=== PATIENT | female | born 1960 | race Caucasian/White ===

== ENCOUNTER → 2018-02-25 09:48 | Outpatient (CLI) | payer MEDICAID, SELFPAY ==
[2018-02-25 14:10] LABS: Basophils # 0.1 K/mm3 (0-0.2); Basophils % 0.6 % (0.1-2.0); Eosinophils # 0.4 K/mm3 (0.0-0.4); Eosinophils % 4.4 % (0.1-12.0); Hematocrit 37.2 % (37.0-47.0); Hemoglobin 11.5 g/dL (12.2-16.2); Lymphocytes % 24.8 K/mm3 (10-50); Mean Corpuscular HGB Conc 30.8 g/dL (31.8-35.4); Mean Corpuscular Hemoglobin 25.1 pg (27.0-31.2); Mean Corpuscular Volume 81.3 fl (81-99); Mean Platelet Volume 7.4 fl (7.4-10.4); Monocytes # 0.4 K/mm3 (0.1-1.0); Monocytes % 4.5 % (1.7-9.3); Neutrophils # 5.4 K/mm3 (1.8-7.8); Neutrophils % 65.6 % (37.0-80.0); Platelet Count 304 K/mm3 (142-424); Red Blood Count 4.58 M/mm3 (4.20-5.40); White Blood Count 8.2 K/mm3 (4.8-10.8)
[2018-02-25 14:29] LABS: Alanine Aminotransferase 44 U/L (12-78); Albumin Level 3.6 gm/dL (3.4-5.0); Albumin/Globulin Ratio 0.9 (1.1-1.8); Alkaline Phosphatase 193 U/L (46-116); Anion Gap 12.6 mEq/L (5-15); Aspartate Amino Transferase 24 U/L (15-37); Bilirubin,Total 0.4 mg/dL (0.2-1.0); Blood Urea Nitrogen 16 mg/dL (7-18); Calcium 8.8 mg/dL (8.5-10.1); Carbon Dioxide 28 mmol/L (21.0-32.0); Chloride 102 mmol/L (98-107); Cholesterol 186 mg/dL (140-200); Creatinine,Serum 0.87 mg/dL (0.55-1.02); Estimated Glomerular Filt Rate 67 ml/min (>60); GFR (African American) 81 ML/MIN (>60); Globulin 4.1 gm/dl (1.3-3.2); Glucose 270 mg/dL (74-106); HDL Cholesterol 46 mg/dL (29-89); LDL Cholesterol 119 mg/dL (0-130); Potassium 4.6 mmoL/L (3.5-5.1); Sodium 138 mmol/L (136-145); T4 (Thyroxine) 2.9 ug/dl (4.7-13.3); Thyroid Stimulating Hormone 33.39 uIU/ml (0.358-3.740); Total Protein,Serum 7.7 gm/dL (6.4-8.2); Triglycerides 107 mg/dL (30-200); VLDL Cholesterol 21 mg/dL (0-40)
[2018-02-25 14:44] LABS: Hemoglobin A1C 8.3 % (0.0-7.0)
[2018-03-01 05:23] LABS: Vitamin D 25 Hydroxy 20.4 ng/mL (30.0-100.0)
== END ==
PROVIDERS: Visit Provider Physician Assistant
DX: E03.9 Hypothyroidism, unspecified (principal); E11.65 Type 2 diabetes mellitus with hyperglycemia; E78.5 Hyperlipidemia, unspecified; I10 Essential (primary) hypertension
CPT/HCPCS: 80053; 80061; 82652; 83036; 84436; 84443; 85025

== ENCOUNTER → 2018-05-12 19:17 | Outpatient (CLI) | payer MEDICAID, SELFPAY ==
[2018-05-12 19:30] LABS: Basophils # 0.1 K/mm3 (0-0.2); Basophils % 0.7 % (0.1-2.0); Eosinophils # 0.3 K/mm3 (0.0-0.4); Eosinophils % 4.4 % (0.1-12.0); Hemoglobin 12.7 g/dL (12.2-16.2); Lymphocytes % 25.1 % (10-50); Mean Corpuscular HGB Conc 30.3 g/dL (31.8-35.4); Mean Corpuscular Hemoglobin 25.4 pg (27.0-31.2); Mean Corpuscular Volume 83.7 fl (81-99); Mean Platelet Volume 8.1 fl (7.4-10.4); Monocytes # 0.4 K/mm3 (0.1-1.0); Monocytes % 4.7 % (1.7-9.3); Neutrophils # 5.1 K/mm3 (1.8-7.8); Neutrophils % 65.1 % (37.0-80.0); Platelet Count 357 K/mm3 (142-424); Red Blood Count 5.02 M/mm3 (4.20-5.40); Red Cell Distribution Width 14.9 % (11.5-17.5); White Blood Count 7.8 K/mm3 (4.8-10.8)
[2018-05-12 19:58] LABS: Alanine Aminotransferase 57 U/L (12-78); Albumin Level 3.6 gm/dL (3.4-5.0); Alkaline Phosphatase 241 U/L (46-116); Anion Gap 16.5 mEq/L (5-15); Aspartate Amino Transferase 28 U/L (15-37); Bilirubin,Total 0.5 mg/dL (0.2-1.0); Blood Urea Nitrogen 16 mg/dL (7-18); Calcium 9.3 mg/dL (8.5-10.1); Carbon Dioxide 24 mmol/L (21.0-32.0); Chloride 96 mmol/L (98-107); Chol/HDL Ratio 4.1 (1-3.5); Cholesterol 182 mg/dL (140-200); Creatinine,Serum 1.05 mg/dL (0.55-1.02); Estimated Glomerular Filt Rate 54 ml/min (>60); GFR (African American) 65 ML/MIN (>60); Globulin 3.7 gm/dl (1.3-3.2); HDL Cholesterol 44 mg/dL (29-89); LDL Cholesterol 100 mg/dL (0-130); Potassium 4.5 mmoL/L (3.5-5.1); Sodium 132 mmol/L (136-145); T4 (Thyroxine) 3.7 ug/dl (4.7-13.3); Thyroid Stimulating Hormone 38.64 uIU/ml (0.358-3.740); Total Protein,Serum 7.3 gm/dL (6.4-8.2); Triglycerides 192 mg/dL (30-200); VLDL Cholesterol 38 mg/dL (0-40)
[2018-05-12 20:01] LABS: Glucose 561 mg/dL (74-106)
[2018-05-14 10:57] LABS: Vitamin D 25 Hydroxy 25.2 ng/mL (30.0-100.0)
== END ==
PROVIDERS: Visit Provider Physician Assistant
DX: E11.65 Type 2 diabetes mellitus with hyperglycemia (principal); E55.9 Vitamin D deficiency, unspecified
CPT/HCPCS: 80053; 80061; 82652; 83036; 84436; 84443; 85025

== ENCOUNTER → 2018-07-29 13:42 | Outpatient (CLI) | payer MEDICAID, SELFPAY ==
[2018-07-29 14:02] LABS: Basophils % 0.4 % (0.1-2.0); Eosinophils # 0.3 K/mm3 (0.0-0.4); Eosinophils % 3.6 % (0.1-12.0); Hematocrit 37.7 % (37.0-47.0); Hemoglobin 11.6 g/dL (12.2-16.2); Lymphocytes # 1.9 K/mm3 (0.7-4.5); Lymphocytes % 22.3 % (10-50); Mean Corpuscular HGB Conc 30.7 g/dL (31.8-35.4); Mean Corpuscular Volume 81.3 fl (81-99); Mean Platelet Volume 7.3 fl (7.4-10.4); Monocytes # 0.4 K/mm3 (0.1-1.0); Monocytes % 4.9 % (1.7-9.3); Neutrophils # 5.8 K/mm3 (1.8-7.8); Neutrophils % 68.7 % (37.0-80.0); Platelet Count 331 K/mm3 (142-424); Red Blood Count 4.64 M/mm3 (4.20-5.40); Red Cell Distribution Width 14.9 % (11.5-17.5); White Blood Count 8.4 K/mm3 (4.8-10.8)
[2018-07-29 14:43] LABS: Alanine Aminotransferase 41 U/L (12-78); Albumin Level 3.4 gm/dL (3.4-5.0); Albumin/Globulin Ratio 0.9 (1.1-1.8); Alkaline Phosphatase 176 U/L (46-116); Anion Gap 11.1 mEq/L (5-15); Aspartate Amino Transferase 20 U/L (15-37); Bilirubin,Total 0.4 mg/dL (0.2-1.0); Blood Urea Nitrogen 14 mg/dL (7-18); Calcium 9.4 mg/dL (8.5-10.1); Carbon Dioxide 28 mmol/L (21.0-32.0); Chloride 103 mmol/L (98-107); Chol/HDL Ratio 3.8 (1-3.5); Cholesterol 154 mg/dL (140-200); Creatinine,Serum 0.87 mg/dL (0.55-1.02); Estimated Glomerular Filt Rate 67 ml/min (>60); GFR (African American) 81 ML/MIN (>60); Globulin 3.7 gm/dl (1.3-3.2); Glucose 231 mg/dL (74-106); HDL Cholesterol 41 mg/dL (29-89); LDL Cholesterol 82 mg/dL (0-130); Potassium 4.1 mmoL/L (3.5-5.1); Sodium 138 mmol/L (136-145); T4 (Thyroxine) 13.5 ug/dl (4.7-13.3); Thyroid Stimulating Hormone 0.25 uIU/ml (0.358-3.740); Total Protein,Serum 7.1 gm/dL (6.4-8.2); Triglycerides 153 mg/dL (30-200); VLDL Cholesterol 31 mg/dL (0-40)
[2018-07-30 15:22] LABS: Hemoglobin A1C 10.3 % (0.0-7.0)
== END ==
PROVIDERS: Visit Provider Nurse Practitioner Family
DX: E11.65 Type 2 diabetes mellitus with hyperglycemia (principal); R30.0 Dysuria
CPT/HCPCS: 80053; 80061; 83036; 84436; 84443; 85025; 87086; 87088; 87186

== ENCOUNTER → 2019-02-10 15:15 | Outpatient (CLI) | payer MEDICAID, SELFPAY ==
[2019-02-10 16:01] LABS: Basophils # 0.1 K/mm3 (0-0.2); Basophils % 0.5 % (0.1-2.0); Eosinophils # 0.4 K/mm3 (0.0-0.4); Eosinophils % 3.7 % (0.1-12.0); Hematocrit 40.4 % (37.0-47.0); Hemoglobin 12.2 g/dL (12.2-16.2); Lymphocytes # 2.5 K/mm3 (0.7-4.5); Lymphocytes % 23.1 % (10-50); Mean Corpuscular HGB Conc 30.3 g/dL (31.8-35.4); Mean Corpuscular Hemoglobin 23.7 pg (27.0-31.2); Mean Corpuscular Volume 78.5 fl (81-99); Mean Platelet Volume 7.4 fl (7.4-10.4); Monocytes # 0.4 K/mm3 (0.1-1.0); Neutrophils # 7.4 K/mm3 (1.8-7.8); Neutrophils % 68.8 % (37.0-80.0); Platelet Count 421 K/mm3 (142-424); Red Blood Count 5.15 M/mm3 (4.20-5.40); Red Cell Distribution Width 15.6 % (11.5-17.5); White Blood Count 10.7 K/mm3 (4.8-10.8)
[2019-02-10 16:38] LABS: Alanine Aminotransferase 33 U/L (12-78); Albumin Level 3.5 gm/dL (3.4-5.0); Albumin/Globulin Ratio 0.9 (1.1-1.8); Alkaline Phosphatase 176 U/L (46-116); Anion Gap 13.2 mEq/L (5-15); Aspartate Amino Transferase 20 U/L (15-37); Bilirubin,Total 0.4 mg/dL (0.2-1.0); Blood Urea Nitrogen 24 mg/dL (7-18); Carbon Dioxide 26 mmol/L (21.0-32.0); Chloride 98 mmol/L (98-107); Chol/HDL Ratio 4.5 (1-3.5); Cholesterol 162 mg/dL (140-200); Creatinine,Serum 1.06 mg/dL (0.55-1.02); Estimated Glomerular Filt Rate 53 ml/min (>60); GFR (African American) 64 ML/MIN (>60); Globulin 3.9 gm/dl (1.3-3.2); Glucose 392 mg/dL (74-106); HDL Cholesterol 36 mg/dL (29-89); LDL Cholesterol 100 mg/dL (0-130); Potassium 4.2 mmoL/L (3.5-5.1); Sodium 133 mmol/L (136-145); T4 (Thyroxine) 6.5 ug/dl (4.7-13.3); Thyroid Stimulating Hormone 6.53 uIU/ml (0.358-3.740); Total Protein,Serum 7.4 gm/dL (6.4-8.2); Triglycerides 129 mg/dL (30-200); VLDL Cholesterol 26 mg/dL (0-40)
[2019-02-10 19:19] LABS: Hemoglobin A1C 8.8 % (0.0-7.0)
[2019-02-12 22:27] LABS: Vitamin D 25 Hydroxy 35.4 ng/mL (30.0-100.0)
== END ==
PROVIDERS: Visit Provider Nurse Practitioner Family
DX: E11.65 Type 2 diabetes mellitus with hyperglycemia (principal); Z79.4 Long term (current) use of insulin
CPT/HCPCS: 80053; 80061; 82652; 83036; 84436; 84443; 85025

== ENCOUNTER → 2019-02-23 17:48 | Outpatient (CLI) | payer MEDICAID, SELFPAY ==
[2019-02-23 18:49] LABS: Amphetamine/Metha Screen,Urine Negative ng/mL (<1000); Barbiturates Screen,Urine Negative ng/mL (<200); Benzodiazepines Screen,Urine Negative ng/mL (<200); Cannabinoid Screen,Urine Negative ng/mL (<50); Cocaine Screen,Urine Negative ng/mL (<300); Methadone Screen,Urine Negative ng/mL (<300); Opiate Screen,Urine Negative ng/mL (<300); Phencyclidine Screen,Urine Negative ng/mL (<25)
[2019-03-02 08:14] LABS: Alprazolam Negative (Cutoff=100); Benzodiazepines Positive ng/mL (Cutoff=100); Clonazepam Positive (.); Flurazepam Negative (Cutoff=100); Lorazepam Negative (Cutoff=100); Midazolam Negative (Cutoff=100); Temazepam Negative (Cutoff=100); Triazolam Negative (Cutoff=100)
[2019-03-03 06:11] LABS: Clonazepam Confirm 241 ng/mL (Cutoff=100)
== END ==
PROVIDERS: Visit Provider Emergency Medicine
DX: Z79.899 Other long term (current) drug therapy (principal)
CPT/HCPCS: 80305; 80346

== ENCOUNTER → 2019-05-10 13:23 | Outpatient (CLI) | payer MEDICAID, SELFPAY ==
[2019-05-10 13:53] LABS: Anion Gap 12.2 mEq/L (5-15); Blood Urea Nitrogen 14 mg/dL (7-18); Calcium 8.8 mg/dL (8.5-10.1); Carbon Dioxide 25 mmol/L (21.0-32.0); Chloride 99 mmol/L (98-107); Creatinine,Serum 0.93 mg/dL (0.55-1.02); Estimated Glomerular Filt Rate 61 ml/min (>60); GFR (African American) 74 ML/MIN (>60); Glucose 370 mg/dL (74-106); Potassium 4.2 mmoL/L (3.5-5.1); Sodium 132 mmol/L (136-145)
== END ==
PROVIDERS: Visit Provider Emergency Medicine
DX: E11.65 Type 2 diabetes mellitus with hyperglycemia (principal); Z79.84 Long term (current) use of oral hypoglycemic drugs
CPT/HCPCS: 80048

== ENCOUNTER → 2019-08-08 13:23 | Outpatient (CLI) | payer MEDICAID, SELFPAY ==
[2019-08-08 13:42] LABS: Basophils # 0.1 K/mm3 (0-0.2); Basophils % 0.6 % (0.1-2.0); Eosinophils # 0.4 K/mm3 (0.0-0.4); Eosinophils % 3.9 % (0.1-12.0); Hematocrit 44.6 % (37.0-47.0); Hemoglobin 13.9 g/dL (12.2-16.2); Lymphocytes # 1.8 K/mm3 (0.7-4.5); Lymphocytes % 19.7 % (10-50); Mean Corpuscular HGB Conc 31.2 g/dL (31.8-35.4); Mean Corpuscular Hemoglobin 25.6 pg (27.0-31.2); Mean Corpuscular Volume 82.3 fl (81-99); Mean Platelet Volume 9.5 fl (7.4-10.4); Monocytes # 0.5 K/mm3 (0.1-1.0); Neutrophils # 6.4 K/mm3 (1.8-7.8); Neutrophils % 70.8 % (37.0-80.0); Platelet Count 353 K/mm3 (142-424); Red Blood Count 5.42 M/mm3 (4.20-5.40); Red Cell Distribution Width 15.1 % (11.5-17.5)
[2019-08-08 13:57] LABS: Alanine Aminotransferase 17 U/L (12-78); Albumin Level 3.8 g/dl (3.5-5.0); Albumin/Globulin Ratio 1.3 (1.1-1.8); Alkaline Phosphatase 234 U/L (38-126); Anion Gap 16.4 mEq/L (5-15); Aspartate Amino Transferase 20 U/L (14-36); Bilirubin,Total 0.6 mg/dl (0.2-1.3); Blood Urea Nitrogen 17 mg/dl (7-17); Calcium 10.1 mg/dl (8.4-10.2); Carbon Dioxide 23 mmol/L (22.0-30.0); Chloride 93 mmol/L (98-107); Chol/HDL Ratio 5.2 (1-3.5); Cholesterol 229 mg/dl (140-200); Estimated Glomerular Filt Rate 102 ml/min (>60); GFR (African American) 123 ML/MIN (>60); Globulin 2.9 g/dL (1.3-3.2); HDL Cholesterol 44 mg/dl (40-60); Potassium 4.4 mmoL/L (3.5-5.1); Sodium 128 mmol/L (136-145); Total Protein,Serum 6.7 g/dl (6.3-8.2); Triglycerides 256 mg/dl (30-150); VLDL Cholesterol 51 mg/dL (0-40)
[2019-08-08 14:08] LABS: Direct LDL Cholesterol 177.56 mg/dL (100-129)
[2019-08-08 14:13] LABS: Free T4 (Free Thyroxine) 0.41 ng/dl (0.78-2.19)
[2019-08-08 14:16] LABS: Glucose 561 mg/dl (74-100)
[2019-08-08 16:05] LABS: Hemoglobin A1C > 14.0 % (4.0-6.0)
[2019-08-09 11:51] LABS: Vitamin D 25 Hydroxy 25.4 ng/mL (30.0-100.0)
[2019-08-09 12:23] LABS: Creatinine, Urine 39.1 mg/dL (Not Estab.); Microalbumin, Urine 50.1 ug/mL (Not Estab.)
[2019-08-09 14:20] LABS: C-Peptide 4.3 ng/mL (1.1-4.4)
== END ==
PROVIDERS: Visit Provider Emergency Medicine
DX: E11.65 Type 2 diabetes mellitus with hyperglycemia (principal); E55.9 Vitamin D deficiency, unspecified; Z79.84 Long term (current) use of oral hypoglycemic drugs
CPT/HCPCS: 80053; 80061; 82043; 82570; 82652; 83036; 84439; 84443; 84681; 85025

== ENCOUNTER → 2019-12-12 14:02 | Outpatient (CLI) | payer MEDICAID, SELFPAY ==
[2019-12-12 14:40] LABS: Basophils # 0.1 K/mm3 (0-0.2); Basophils % 0.7 % (0.1-2.0); Eosinophils # 0.5 K/mm3 (0.0-0.4); Eosinophils % 5.7 % (0.1-12.0); Hematocrit 39.9 % (37.0-47.0); Hemoglobin 12.7 g/dL (12.2-16.2); Lymphocytes % 22.6 % (10-50); Mean Corpuscular HGB Conc 31.7 g/dL (31.8-35.4); Mean Corpuscular Hemoglobin 26.9 pg (27.0-31.2); Mean Corpuscular Volume 84.9 fl (81-99); Mean Platelet Volume 8.1 fl (7.4-10.4); Monocytes # 0.4 K/mm3 (0.1-1.0); Monocytes % 4.3 % (1.7-9.3); Neutrophils # 5.8 K/mm3 (1.8-7.8); Neutrophils % 66.8 % (37.0-80.0); Platelet Count 417 K/mm3 (142-424); Red Cell Distribution Width 14.9 % (11.5-17.5); White Blood Count 8.8 K/mm3 (4.8-10.8)
[2019-12-12 15:04] LABS: Chloride 99 mmol/L (98-107)
[2019-12-12 15:05] LABS: Potassium 4.7 mmoL/L (3.5-5.1); Sodium 133 mmol/L (136-145)
[2019-12-12 15:07] LABS: Alanine Aminotransferase 22 U/L (12-78); Alkaline Phosphatase 230 U/L (38-126); Anion Gap 11.7 mEq/L (5-15); Aspartate Amino Transferase 21 U/L (14-36); Bilirubin,Total 0.5 mg/dl (0.2-1.3); Blood Urea Nitrogen 21 mg/dl (7-17); Carbon Dioxide 27 mmol/L (22.0-30.0); Estimated Glomerular Filt Rate 85 ml/min (>60); GFR (African American) 103 ML/MIN (>60)
[2019-12-12 15:08] LABS: Albumin Level 3.7 g/dl (3.5-5.0); Albumin/Globulin Ratio 1.3 (1.1-1.8); Calcium 9.4 mg/dl (8.4-10.2); Globulin 2.9 g/dL (1.3-3.2); Glucose 353 mg/dl (74-100); Total Protein,Serum 6.6 g/dl (6.3-8.2)
[2019-12-12 16:32] LABS: Hemoglobin A1C 13.5 % (4.0-6.0)
== END ==
LOC: LAB 14:02 → LAB.DROPOF 12-13 08:21
PROVIDERS: Visit Provider Emergency Medicine
DX: E11.65 Type 2 diabetes mellitus with hyperglycemia (principal); Z79.4 Long term (current) use of insulin
CPT/HCPCS: 80053; 83036; 85025

== ENCOUNTER → 2020-03-13 14:38 | Outpatient (CLI) | payer MEDICAID, SELFPAY ==
[2020-03-13 15:07] LABS: Basophils # 0.1 K/mm3 (0-0.2); Basophils % 0.9 % (0.1-2.0); Eosinophils # 0.4 K/mm3 (0.0-0.4); Eosinophils % 4.7 % (0.1-12.0); Hematocrit 39.2 % (37.0-47.0); Lymphocytes # 1.6 K/mm3 (0.7-4.5); Lymphocytes % 20.8 % (10-50); Mean Corpuscular HGB Conc 30.5 g/dL (31.8-35.4); Mean Corpuscular Hemoglobin 25.9 pg (27.0-31.2); Mean Corpuscular Volume 84.9 fl (81-99); Mean Platelet Volume 8.8 fl (7.4-10.4); Monocytes # 0.5 K/mm3 (0.1-1.0); Neutrophils % 66.5 % (37.0-80.0); Platelet Count 383 K/mm3 (142-424); Red Blood Count 4.62 M/mm3 (4.20-5.40); Red Cell Distribution Width 13.9 % (11.5-17.5); White Blood Count 7.6 K/mm3 (4.8-10.8)
[2020-03-13 18:36] LABS: Hemoglobin A1C 6.2 % (4.0-6.0)
== END ==
PROVIDERS: Visit Provider Emergency Medicine
DX: E11.65 Type 2 diabetes mellitus with hyperglycemia (principal); Z79.4 Long term (current) use of insulin
CPT/HCPCS: 83036; 85025

== ENCOUNTER → 2022-07-03 11:50 | Outpatient (CLI) | payer MEDICAID, SELFPAY ==
[2022-07-03 14:59] LABS: Alanine Aminotransferase 22 U/L (12-78); Albumin Level 4.1 g/dl (3.5-5.0); Albumin/Globulin Ratio 1.5 (1.1-1.8); Alkaline Phosphatase 156 U/L (38-126); Aspartate Amino Transferase 25 U/L (14-36); Bilirubin,Total 0.4 mg/dl (0.2-1.3); Blood Urea Nitrogen 15 mg/dl (7-17); Carbon Dioxide 25 mmol/L (22.0-30.0); Chloride 103 mmol/L (98-107); Chol/HDL Ratio 5.5 (1-3.5); Cholesterol 232 mg/dl (140-200); Estimated Glomerular Filt Rate 63 ml/min (>60); GFR (African American) 77 ML/MIN (>60); Globulin 2.8 g/dL (1.3-3.2); Glucose 110 mg/dl (74-100); HDL Cholesterol 42 mg/dl (40-60); Sodium 138 mmol/L (136-145); Total Protein,Serum 6.9 g/dl (6.3-8.2); Triglycerides 188 mg/dl (30-150); VLDL Cholesterol 38 mg/dL (0-40)
[2022-07-03 15:07] LABS: Basophils # 0.1 K/mm3 (0-0.2); Basophils % 0.6 % (0.1-2.0); Eosinophils # 0.6 K/mm3 (0.0-0.4); Eosinophils % 5.3 % (0.1-12.0); Hematocrit 36.5 % (37.0-47.0); Hemoglobin 11.9 g/dL (12.2-16.2); Lymphocytes # 2.1 K/mm3 (0.7-4.5); Lymphocytes % 19.1 % (10-50); Mean Corpuscular HGB Conc 32.5 g/dL (31.8-35.4); Mean Corpuscular Hemoglobin 26.2 pg (27.0-31.2); Mean Corpuscular Volume 80.5 fl (81-99); Mean Platelet Volume 7.6 fl (7.4-10.4); Monocytes # 0.6 K/mm3 (0.1-1.0); Monocytes % 5.6 % (1.7-9.3); Neutrophils # 7.8 K/mm3 (1.8-7.8); Neutrophils % 69.4 % (37.0-80.0); Platelet Count 439 K/mm3 (142-424); Red Blood Count 4.53 M/mm3 (4.20-5.40); Red Cell Distribution Width 15.5 % (11.5-17.5); White Blood Count 11.2 K/mm3 (4.8-10.8)
[2022-07-03 15:10] LABS: Direct LDL Cholesterol 148.99 mg/dL (100-129)
[2022-07-03 15:14] LABS: 25-OH Vitamin D, Total 18.5 ng/mL (30-100)
[2022-07-03 15:45] LABS: Anion Gap 14.5 mEq/L (5-15); Potassium 4.5 mmoL/L (3.5-5.1)
[2022-07-03 16:02] LABS: Hemoglobin A1C 6.8 % (4.0-6.0)
== END ==
PROVIDERS: PCP Nurse Practitioner Family; Visit Provider Nurse Practitioner Family
DX: E03.9 Hypothyroidism, unspecified (principal); E11.65 Type 2 diabetes mellitus with hyperglycemia; I10 Essential (primary) hypertension; E55.9 Vitamin D deficiency, unspecified; R53.83 Other fatigue; Z79.84 Long term (current) use of oral hypoglycemic drugs
CPT/HCPCS: 80053; 80061; 82306; 83036; 84443; 85025

== ENCOUNTER 2023-12-08 18:00 | Outpatient (CLI) | payer MEDICARE, MEDICAID, SELFPAY | END 2023-12-08 23:59 | disposition home or self-care (01) | LOC: LAB.DROPOF 12-09 09:09 | PROVIDERS: PCP Nurse Practitioner Family; Visit Provider Nurse Practitioner Family | DX: N39.0 Urinary tract infection, site not specified (principal) | CPT/HCPCS: 87086 ==

== ENCOUNTER 2023-12-10 09:44 | Outpatient (CLI) | payer MEDICARE, MEDICAID, SELFPAY ==
[2023-12-10 18:58] LABS: Basophils # 0.1 K/mm3 (0-0.2); Basophils % 0.9 % (0.1-2.0); Eosinophils # 0.4 K/mm3 (0.0-0.4); Eosinophils % 3.9 % (0.1-12.0); Hematocrit 38.5 % (37.0-47.0); Hemoglobin 12.6 g/dL (12.2-16.2); Lymphocytes # 2.3 K/mm3 (0.7-4.5); Lymphocytes % 24.2 % (10-50); Mean Corpuscular HGB Conc 32.8 g/dL (31.8-35.4); Mean Corpuscular Hemoglobin 28.4 pg (27.0-31.2); Mean Corpuscular Volume 86.6 fl (81-99); Mean Platelet Volume 7.9 fl (7.4-10.4); Monocytes # 0.4 K/mm3 (0.1-1.0); Monocytes % 4.5 % (1.7-9.3); Neutrophils # 6.3 K/mm3 (1.8-7.8); Neutrophils % 66.6 % (37.0-80.0); Platelet Count 327 K/mm3 (142-424); Red Blood Count 4.45 M/mm3 (4.20-5.40); Red Cell Distribution Width 14.5 % (11.5-17.5); White Blood Count 9.4 K/mm3 (4.8-10.8)
[2023-12-10 19:28] LABS: Alanine Aminotransferase 25 U/L (12-78); Albumin Level 3.9 g/dl (3.5-5.0); Albumin/Globulin Ratio 1.2 (1.1-1.8); Alkaline Phosphatase 192 U/L (38-126); Aspartate Amino Transferase 27 U/L (14-36); Bilirubin,Total 0.6 mg/dl (0.2-1.3); Blood Urea Nitrogen 23 mg/dl (7-17); Calcium 9.7 mg/dl (8.4-10.2); Carbon Dioxide 23 mmol/L (22.0-30.0); Chloride 102 mmol/L (98-107); Chol/HDL Ratio 5.4 (1-3.5); Cholesterol 239 mg/dl (140-200); Estimated Glomerular Filt Rate 56 ml/min (>60); GFR (African American) 68 ML/MIN (>60); Globulin 3.2 g/dL (1.3-3.2); Glucose 83 mg/dl (74-100); HDL Cholesterol 44 mg/dl (40-60); Sodium 138 mmol/L (136-145); Total Protein,Serum 7.1 g/dl (6.3-8.2); Triglycerides 128 mg/dl (30-150); VLDL Cholesterol 26 mg/dL (0-40)
[2023-12-10 19:39] LABS: Direct LDL Cholesterol 157.35 mg/dL (100-129)
[2023-12-10 19:48] LABS: Hemoglobin A1C 7.8 % (4.0-6.0)
[2023-12-11 14:03] LABS: HIV (1&2) Antibody Rapid NEGATIVE
[2023-12-12 10:06] LABS: HCV Ab Non Reactive (Non Reactive)
== END 2023-12-10 23:59 | disposition home or self-care (01) ==
LOC: LAB.DROPOF 12-11 09:44
PROVIDERS: PCP Nurse Practitioner Family; Visit Provider Nurse Practitioner Family
DX: E55.9 Vitamin D deficiency, unspecified (principal); E11.65 Type 2 diabetes mellitus with hyperglycemia; E78.5 Hyperlipidemia, unspecified; B18.2 Chronic viral hepatitis C; G47.33 Obstructive sleep apnea (adult) (pediatric)
CPT/HCPCS: 80050; 80053; 80061; 82306; 83036; 84443; 85025

== ENCOUNTER 2024-04-18 19:40 | Inpatient (IN) | payer MEDICAID, MEDICARE, SELFPAY ==
[2024-04-18] VITALS (8 sets, daily range): BP systolic 124–151; BP diastolic 70–104; PULSE 105–118; RESP 18; TEMP 36.6–36.8; O2SAT 94–100; BMI 54.7; BMI 52.5
--- NOTE | 2024-04-18 19:48 | ED_ITS ---
<Statement entered by Ana Cristina Esposito MD - 04/18/24 23:03> I was consulted by the MALENA, and we discussed the complexity of the problems being addressed. I approved the treatment and management plan for this patient's care in the emergency department, thus performing a substantive portion of the medical decision making. Ana Cristina Esposito MD, MATILDE, FACEP Discharge Plan Disposition Patient Disposition: Admitted Condition: Fair Chief Complaint: Weakness Prescriptions Prescriptions: No Action Humulin 70/30 U-100 KwikPen 100 unit/mL (70-30) insulin pen 36 unit SQ BID nystatin 100,000 unit/gram cream topical Invokana 100 mg tablet 100 mg PO DAILY Patient Comments: TAKE 1 TABLET BY MOUTH ONCE DAILY WITH BREAKFAST . APPOINTMENT REQUIRED FOR FUTURE REFILLS nitrofurantoin monohyd/m-cryst [Macrobid] 100 mg capsule 100 mg PO Q12H 10 Days Qty: 20 0RF Rx Instructions: must administer with a meal/food fluconazole 150 mg tablet 150 mg PO DAILY 4 Days Qty: 4 0RF (DME) blood-glucose meter [OneTouch UltraMini] Kit See Rx Instructions .ROUTE .MEDSUPPLY Qty: 1 0RF Rx Instructions: daily As directed (DME) OneTouch Ultra Blue Test Strip Strip See Rx Instructions .ROUTE .COMPLEX Qty: 100 3RF Dose Instruction: TEST BLOOD SUGAR 3 TIMES A DAY Rx Instructions: TEST BLOOD SUGAR 3 TIMES A DAY (DME) lancets [OneTouch Delica Plus Lancet] 33 gauge misc See Rx Instructions .ROUTE .COMPLEX Qty: 100 3RF Dose Instruction: USE DIRECTED 3 TIMES A DAY Rx Instructions: USE DIRECTED 3 TIMES A DAY levothyroxine 50 mcg capsule 50 mcg PO DAILY Qty: 30 2RF cholecalciferol (vitamin D3) 1,250 mcg (50,000 unit) tablet 1,250 mcg PO WEEKLY Qty: 7 2RF metformin 1,000 mg tablet See Rx Instructions .ROUTE .COMPLEX Qty: 60 0RF Dose Instruction: TAKE ONE TABLET BY MOUTH 2 TIMES A DAY Rx Instructions: TAKE ONE TABLET BY MOUTH 2 TIMES A DAY glipizide 10 mg tablet extended release 24hr See Rx Instructions .ROUTE .COMPLEX Qty: 60 0RF Dose Instruction: TAKE ONE TABLET BY MOUTH 2 TIMES A DAY Rx Instructions: TAKE ONE TABLET BY MOUTH 2 TIMES A DAY cholecalciferol (vitamin D3) [Vitamin D3] 50 mcg (2,000 unit) capsule See Rx Instructions .ROUTE .COMPLEX Qty: 30 0RF Dose Instruction: TAKE ONE CAPSULE BY MOUTH ONCE A DAY Rx Instructions: TAKE ONE CAPSULE BY MOUTH ONCE A DAY lisinopril 20 mg tablet See Rx Instructions .ROUTE .COMPLEX Qty: 30 0RF Dose Instruction: TAKE ONE TABLET BY MOUTH ONCE A DAY Rx Instructions: TAKE ONE TABLET BY MOUTH ONCE A DAY (DME) Dexcom G7 Obiee Consultant Misc See Rx Instructions .Route Qty: 1 2RF Rx Instructions: As directed or bid (DME) Dexcom G7 Sensor Device See Rx Instructions .Route Qty: 3 3RF Rx Instructions: As directed or bid Referrals Follow up/Referrals: Annie Talbot APRN [Primary Care Provider] - See instructions Clinical Impressions Clinical Impression: Acute kidney injury (nontraumatic), Metabolic acidosis Print Language Print Language: Portuguese Discharge ED Provider: Ana Cristina Esposito General Adult HPI General Chief complaint: Weakness Stated complaint: weakness, difficulty walking, body aches Time Seen by Provider: 04/18/24 19:48 History of Present Illness HPI narrative: Patient presents for evaluation of acute weakness. Patient has had progressive weakness for the last 3 days. She reports that she does not even have the strength to go to the bathroom. She is normally extremely independent of all activities of daily living. She does have a past medical history of morbid obesity with a BMI 54, insulin-dependent type 2 diabetes mellitus, obstructive sleep apnea on CPAP, hypothyroidism and hypertension diabetic dyslipidemia she denies any fever chills hemoptysis hematochezia melena she reports some nausea but no vomiting or diarrhea. She has had a bowel movement and passing flatus. She has no chest pain abdominal pain or fevers. Related Data Home Medications ?Medication ?Instructions ?Recorded ?Confirmed canagliflozin 100 mg tablet 100 mg PO DAILY 12/08/23 12/08/23 (Invokana) insulin NPH-regular 70-30 U-100 36 unit SQ BID 12/08/23 12/08/23 insulin 100 unit/mL subcutaneous pen (Humulin 70/30 U-100 KwikPen) nystatin 100,000 unit/gram topical topical 12/08/23 12/08/23 cream Previous Rx's ?Medication ?Instructions ?Recorded blood sugar diagnostic #100 strips 07/03/22 blood-glucose meter (OneTouch #1 ea 07/03/22 UltraMini kit) cholecalciferol (vitamin D3) 1,250 1,250 mcg PO WEEKLY #7 tabs 07/03/22 mcg (50,000 unit) tablet lancets 33 gauge (OneTouch Delica ##100 07/03/22 Plus Lancet) metformin 1,000 mg tablet See Rx Instructions .Route 10/07/22 .COMPLEX #60 tabs cholecalciferol (vitamin D3) 50 See Rx Instructions .Route 11/19/22 mcg (2,000 unit) capsule (Vitamin .COMPLEX #30 caps D3) glipizide 10 mg tablet, extended See Rx Instructions .Route 11/19/22 release 24 hr .COMPLEX #60 tabs lisinopril 20 mg tablet See Rx Instructions .Route 11/19/22 .COMPLEX #30 tabs fluconazole 150 mg tablet 150 mg PO DAILY 4 days #4 tabs 12/08/23 nitrofurantoin 100 mg PO Q12H 10 days #20 caps 12/08/23 monohydrate/macrocrystals 100 mg capsule (Macrobid) blood-glucose meter,continuous #1 ea 12/11/23 (Dexcom G7 Obiee Consultant) blood-glucose sensor (Dexcom G7 #3 ea 12/11/23 Sensor device) levothyroxine 50 mcg capsule 50 mcg PO DAILY #30 caps 12/11/23 Allergies Allergy/AdvReac Type Severity Reaction Status Date / Time canagliflozin [From Invokana] Allergy Mild rash Verified 12/08/23 10:24 [facility] Disclaimer: The information contained in this section may have been updated after the patient was seen, as this information can be updated by other users. Medical History Hypothyroidism Hypertension Diabetes type 2, uncontrolled Hyperlipemia Social History Smoking Status: Never smoker alcohol intake: never substance use type: denies use current occupational status: disabled Travel in the last 8 weeks: Inside the [place] Other Medical History Have you received the Flu Vaccine for this season: No Have you received the Pneumonia Vaccine: No ROS Obtained: Yes Systems reviewed as appropriate & no additional complaints except as documented Physical Exam General General appearance: alert and in no apparent distress Respiratory Respiratory exam: Present normal lung sounds bilaterally; Absent respiratory distress Cardiovascular Cardiovascular exam: Present tachycardia Neurological Exam Neurological exam: Present alert, oriented X3 and CN II-XII intact Medical Decision Making Medical Records Medical records reviewed: Yes I reviewed the patient's medical records. Screening: Per USPSTF and CDC recommendations, given the prevalence of disease in our region, it is our hospital?s policy to screen for HIV and viral Hepatitis for all patients aged 18 and over and those with ongoing risk factors. David Inquiry Pt receiving controlled substance: No Vital Signs: 04/18/24 19:41 04/18/24 20:00 04/18/24 20:33 Temperature 97.9 F Temperature Source Oral Pulse Rate 110 H 105 H Pulse Rate [Right Radial] 118 H Respiratory Rate 18 Blood Pressure 141/82 H 139/70 Blood Pressure [Right Arm] 151/104 H Blood Pressure Mean [Right Arm] 119 Blood Pressure Source [Right Arm] Automatic Cuff 02 Sat by Pulse Oximetry 98 94 L 99 Oxygen Delivery Method Room Air 04/18/24 21:30 04/18/24 22:15 Temperature Temperature Source Pulse Rate 105 H 110 H Pulse Rate [Right Radial] Respiratory Rate Blood Pressure 138/74 136/72 Blood Pressure [Right Arm] Blood Pressure Mean [Right Arm] Blood Pressure Source [Right Arm] 02 Sat by Pulse Oximetry 98 100 Oxygen Delivery Method Lab Data Lab results reviewed: Yes I reviewed the patient's lab results. Lab Results 04/18/24 20:07: Sodium 138, Potassium 4.4, Chloride 106, Carbon Dioxide 14 L, A nion Gap 22.4 H, BUN 62 H, Creatinine 2.60 H, Estimated Creat Clear 18, E stimated GFR 18 L*, Est GFR ( Amer) 22 L, Glucose 143 H, Calcium 9.3, Total Bilirubin 0.9, AST 172 H, ALT 52, Alkaline Phosphatase 284 H, Troponin I 0.02, NT-Pro-B Natriuret Pep 279 H, Total Protein 8.6 H, Albumin 4.5, Globulin 4.1 H, Albumin/Globulin Ratio 1.1, TSH 31.10 H, Free T4 Index 1.4 L, Thyroxine (T4) 4.7 L, T3 Uptake 29 04/18/24 20:12: SARS-CoV-2 (PCR) Not detected, Influenza A Untype (PCR) Not detected, Influenza Type B (PCR) Not detected 04/18/24 21:47: VBG pH 7.26 L, VBG pCO2 36.1, VBG pO2 34.4, VBG HCO3 15.7 L, VBG Total CO2 16.8 L, VBG O2 Saturation 63.4, VBG Base Excess -11.4 L, VBG Lactic Acid 1.4 04/18/24 22:19: WBC 11.3 H, RBC 4.53, Hgb 12.7, Hct 37.7, MCV 83.2, MCH 28.1, MCHC 33.7, RDW 15.8, Plt Count 290, MPV 7.4, Neut % (Auto) 65.6, Lymph % (Auto) 22.8, [place] % (Auto) 7.0, Eos % (Auto) 3.7, Baso % (Auto) 0.9, Neut # (Auto) 7.4, Lymph # (Auto) 2.6, [place] # (Auto) 0.8, Eos # (Auto) 0.4, Baso # (Auto) 0.1 04/18/24 22:19 04/18/24 20:07 Orders (Tests/Meds): ED MEDICATIONS Discontinued Medications Generic Name Dose Route Start Last Admin Trade Name Freq PRN Reason Stop Dose Admin Acetaminophen 1,000 mg 04/18/24 19:59 04/18/24 20:25 Acetaminophen 1,000mg/100ml Vial IV 04/18/24 20:00 1,000 mg ONCE ONE Administration Sodium Chloride 1,000 mls @ 999 mls/hr 04/18/24 19:59 04/18/24 20:25 Sod Chlor 0.9% 1000ml Bag IV 04/18/24 20:59 999 mls/hr .Q1H1M ONE Administration Ondansetron HCl 4 mg 04/18/24 19:59 04/18/24 20:25 Ondansetron 4mg/2ml Vial IV 04/18/24 20:00 4 mg ONCE ONE Administration ORDERS Category Date Time Status Acetaminophen Stat Lab 04/18/24 22:19 Received BNP [NT Pro Brain Natriuretic Pep.] Stat Lab 04/18/24 20:07 Completed CBC w/Auto Diff [Complete Blood Count Auto Diff] Stat Lab 04/18/24 22:19 Completed CK [Creatine Kinase] Stat Lab 04/18/24 22:19 Received CMP [Comprehensive Metabolic Panel] Stat Lab 04/18/24 20:07 Completed Ethanol [Ethyl Alcohol] Stat Lab 04/18/24 22:19 Received Rapid PCR Covid and Flu A/B Stat Lab 04/18/24 20:12 Completed Salicylate Stat Lab 04/18/24 22:19 Received Thyroid Panel Stat Lab 04/18/24 20:07 Completed Trop I [Troponin I] Stat Lab 04/18/24 20:07 Completed Troponin I Q3H Lab 04/18/24 22:19 Received Troponin I Q3H Lab 04/19/24 02:00 Ordered UA [Urinalysis and Microscopic] Stat Lab 04/18/24 19:59 Ordered UDS [Drug Screen,Urine] Stat Lab 04/18/24 21:25 Ordered Venous Blood Gas Stat RT 04/18/24 21:47 Completed Medical Decision Narrative: In summary patient is a 63-year-old female who presents to the emergency department for evaluation of generalized weakness. Patient is initially with a blood pressure 151/104 however she is very tachycardic at 119 satting at 98% on room air breathing 18 times a minute upon arrival, afebrile. Physical exam is remarkable for a very pleasant well-nourished well-developed morbidly obese 63-year-old female who otherwise does not appear to be in acute distress. Patient is in sinus tachycardia on the bedside monitor. She has no focal findings on exam including normal breath sounds no abdominal pain normal heart sounds even though it is rapid no dependent edema noted.. Differential diagnosis includes CHF versus ACS versus acute viral bacterial infection etc. Initial workup will be conducted with hematologic labs urinalysis for now and twelve- lead EKG. Initial interventions include crystalloid bolus Tylenol. Initial workup reviewed by me shows she has a significant kidney injury and metabolic acidosis. Upon repeat evaluation patient and denies ingestion of Tylenol ibuprofen or alcohol. Given this interactive discussion with hospital medicine regarding patient management and she will be admitted for further evaluation and care. Critical Care Critical Care Time Critical Care Time: No
--- NOTE | 2024-04-18 20:15 | ECG_ITS ---
APPROVED REPORT Exam: Resting ECG HR:100 bpm ECG Measurements Heart Rate 100 AXES DE 169 P 94 QRSd 86 QRS 1 QT 330 T 46 QTc 387 Conclusion SINUS TACHYCARDIA ABNORMAL RHYTHM ECG UNCONFIRMED REPORT Electronically signed by : Quinton Esposito, 04/18/2024 23:06:24
[2024-04-18 20:17] LABS: Coronavirus 19, PCR Not Detected (NotDetected); Influenza A, PCR Not Detected (NotDetected); Influenza B, PCR Not Detected (NotDetected)
[2024-04-18] MEDS: ONDANSETRON 4MG/2ML VIAL 4 MG IV (20:25)
[2024-04-18] MEDS: ACETAMINOPHEN 1,000MG/100ML VIAL 1000 MG IV (20:25)
[2024-04-18] MEDS: 0.9 % SODIUM CHLORIDE 1000ML 1,000 ML 999 ML IV (20:25)
[2024-04-18 20:33] LABS: Albumin Level 4.5 g/dl (3.5-5.0); Chloride 106 mmol/L (98-107); Potassium 4.4 mmoL/L (3.5-5.1); Sodium 138 mmol/L (136-145)
[2024-04-18 20:35] LABS: Blood Urea Nitrogen 62 mg/dl (7-17); Creatinine Clearance Estimated 18 mL/min (50-200); Estimated Glomerular Filt Rate 18 ml/min (>60); GFR (African American) 22 ML/MIN (>60)
[2024-04-18 20:36] LABS: Alanine Aminotransferase 52 U/L (12-78); Albumin/Globulin Ratio 1.1 (1.1-1.8); Alkaline Phosphatase 284 U/L (38-126); Anion Gap 22.4 mEq/L (5-15); Aspartate Amino Transferase 172 U/L (14-36); Bilirubin,Total 0.9 mg/dl (0.2-1.3); Calcium 9.3 mg/dl (8.4-10.2); Carbon Dioxide 14 mmol/L (22.0-30.0); Globulin 4.1 g/dL (1.3-3.2); Glucose 143 mg/dl (74-100); Total Protein,Serum 8.6 g/dl (6.3-8.2)
[2024-04-18 20:45] LABS: NT Pro Brain Natriuretic Pep. 279 pg/mL (0-125)
[2024-04-18 20:48] LABS: Troponin I 0.02 ng/ml (0.00-0.034)
[2024-04-18 21:05] LABS: Free Thyroxine Index 1.4 ug/dL (5.93-13.13); T4 (Thyroxine) 4.7 ug/dl (5.53-11.0); Triiodothryronine (T3) Uptake 29 % (23.5-40.5)
[2024-04-18 22:24] LABS: Lactate Venous 1.4 mmol/L (0.4-2.0); VBG Base Excess -11.4 mmol/L (-2.4-2.3); VBG HCO3 15.7 mmol/L (23-30); VBG Oxygen Saturation 63.4 % (50-70); VBG PCO2 36.1 mmol/L (35-51); VBG PH 7.26 mmol/L (7.31-7.41); VBG PO2 34.4 mmol/L (28-40); VBG Total CO2 16.8 mmol/L (23-27)
--- NOTE | 2024-04-18 22:25 | PC.NURSE ---
Patient declines allowing me to get an in and out catheter to get a urine sample at this time
[2024-04-18 22:30] LABS: Basophils # 0.1 K/mm3 (0-0.2); Basophils % 0.9 % (0.1-2.0); Eosinophils # 0.4 K/mm3 (0.0-0.4); Eosinophils % 3.7 % (0.1-12.0); Hematocrit 37.7 % (37.0-47.0); Hemoglobin 12.7 g/dL (12.2-16.2); Lymphocytes # 2.6 K/mm3 (0.7-4.5); Lymphocytes % 22.8 % (10-50); Mean Corpuscular HGB Conc 33.7 g/dL (31.8-35.4); Mean Corpuscular Hemoglobin 28.1 pg (27.0-31.2); Mean Corpuscular Volume 83.2 fl (81-99); Mean Platelet Volume 7.4 fl (7.4-10.4); Monocytes # 0.8 K/mm3 (0.1-1.0); Neutrophils # 7.4 K/mm3 (1.8-7.8); Neutrophils % 65.6 % (37.0-80.0); Platelet Count 290 K/mm3 (142-424); Red Blood Count 4.53 M/mm3 (4.20-5.40); Red Cell Distribution Width 15.8 % (11.5-17.5); White Blood Count 11.3 K/mm3 (4.8-10.8)
--- NOTE | 2024-04-18 22:30 | PC.NURSE ---
Camron Uriarte PAC-C s/w hospitalist for admission
--- NOTE | 2024-04-18 22:40 | PC.NURSE ---
pressroom supervisor notified of admission
[2024-04-18 22:58] LABS: Acetaminophen < 10 ug/ml (10-30); Ethyl Alcohol < 10 mg/dl (0-10); Salicylate < 1.0 mg/dL (2.0-20.0)
[2024-04-18 23:05] LABS: Troponin I 0.02 ng/ml (0.00-0.034)
--- NOTE | 2024-04-18 23:08 | P.HP_ITS ---
History of Present Illness *Admission Date: 04/18/24 *Reason for visit:: Generalized weakness *History of present illness: Patient is a 63-year-old female with past medical history of diabetes mellitus, hypothyroidism hyperlipidemia hypertension who presents to the hospital due to generalized weakness. Patient mentions she has not been eating well and she has poor oral intake since then. Patient otherwise denied nausea vomiting diarrhea. On further evaluation patient was found to have elevated creatinine and was admitted for acute kidney injury. [facility] Disclaimer: The information contained in this section may have been updated after the patient was seen, as this information can be updated by other users. Medical History (Updated 04/19/24 @ 04:21 by Yulisa Hebert RN) Yeast infection Hypothyroidism Hypertension Diabetes type 2, uncontrolled Hyperlipemia Surgical History (Updated 04/19/24 @ 00:05 by Yulisa Hebert RN) Hx of tubal ligation Social History (Updated 04/19/24 @ 00:06 by Yulisa Hebert RN) Smoking Status: Never smoker alcohol intake: never substance use type: denies use current occupational status: disabled Travel in the last 8 weeks: [place] the [place] Other Medical History Have you received the Flu Vaccine for this season: No Have you received the Pneumonia Vaccine: No Review of Systems Review of Systems Review of systems:: pertinent systems reviewed and negative unless documented below Meds Home Medications and Allergies Home Medications ?Medication ?Instructions ?Recorded ?Confirmed ?Type blood sugar diagnostic #100 strips 07/03/22 07/03/22 Rx blood-glucose meter (OneTouch #1 ea 07/03/22 07/03/22 Rx UltraMini kit) lancets 33 gauge (OneTouch Delica ##100 07/03/22 07/03/22 Rx Plus Lancet) metformin 1,000 mg tablet See Rx Instructions .Route 10/07/22 04/19/24 Rx .COMPLEX #60 tabs glipizide 10 mg tablet, extended See Rx Instructions .Route 11/19/22 04/19/24 Rx release 24 hr .COMPLEX #60 tabs lisinopril 20 mg tablet See Rx Instructions .Route 11/19/22 04/19/24 Rx .COMPLEX #30 tabs insulin NPH-regular 70-30 U-100 36 unit SQ BID 12/08/23 12/08/23 History insulin 100 unit/mL subcutaneous pen (Humulin 70/30 U-100 MalickPen) blood-glucose meter,continuous #1 ea 12/11/23 Rx (Dexcom G7 Public Health Sanitarian Technician) blood-glucose sensor (Dexcom G7 #3 ea 12/11/23 Rx Sensor device) levothyroxine 25 mcg tablet 25 mcg PO DAILY 04/19/24 04/19/24 History rosuvastatin 40 mg tablet 40 mg PO HS 04/19/24 04/19/24 History tirzepatide 2.5 mg/0.5 mL 2.5 mg SQ WEEKLY 04/19/24 04/19/24 History subcutaneous pen injector (Mounjaro) New Prescriptions to Start Prescriptions: Allergies Allergy/AdvReac Type Severity Reaction Status Date / Time canagliflozin [From [facility]] Allergy Other Verified 04/18/24 23:53 Exam Data for Last 24 hours Vital signs and Labs for Last 24 Hours: Temp Pulse Resp BP Pulse Ox O2 Del Method 98.1 F 110 H 18 138/74 100 Room Air 04/18/24 22:40 04/18/24 22:40 04/18/24 22:40 04/18/24 22:40 04/18/24 22:15 04/18/24 22:40 Laboratory Results - last 24 hr 04/18/24 20:07: Sodium 138, Potassium 4.4, Chloride 106, Carbon Dioxide 14 L, Anion Gap 22.4 H, BUN 62 H, Creatinine 2.60 H, Estimated Creat Clear 18, Estimated GFR 18 L*, Est GFR ( Amer) 22 L, Glucose 143 H, Calcium 9.3, Total Bilirubin 0.9, AST 172 H, ALT 52, Alkaline Phosphatase 284 H, Troponin I 0.02, NT-Pro-B Natriuret Pep 279 H, Total Protein 8.6 H, Albumin 4.5, Globulin 4.1 H, Albumin/Globulin Ratio 1.1, TSH 31.10 H, Free T4 Index 1.4 L, Thyroxine (T4) 4.7 L, T3 Uptake 29 04/18/24 20:12: SARS-CoV-2 (PCR) Not detected, Influenza A Untype (PCR) Not detected, Influenza Type B (PCR) Not detected 04/18/24 21:47: VBG pH 7.26 L, VBG pCO2 36.1, VBG pO2 34.4, VBG HCO3 15.7 L, VBG Total CO2 16.8 L, VBG O2 Saturation 63.4, VBG Base Excess -11.4 L, VBG Lactic Acid 1.4 04/18/24 22:19: WBC 11.3 H, RBC 4.53, Hgb 12.7, Hct 37.7, MCV 83.2, MCH 28.1, MCHC 33.7, RDW 15.8, Plt Count 290, MPV 7.4, Neut % (Auto) 65.6, Lymph % (Auto) 22.8, [place] % (Auto) 7.0, Eos % (Auto) 3.7, Baso % (Auto) 0.9, Neut # (Auto) 7.4, Lymph # (Auto) 2.6, [place] # (Auto) 0.8, Eos # (Auto) 0.4, Baso # (Auto) 0.1, Salicylates < 1.0 L, Acetaminophen < 10 L, Plasma/Serum Alcohol < 10 I & O for Last 24 hours: Intake & Output 04/15/24 04/16/24 04/17/24 04/18/24 23:59 23:59 22:59 23:59 Weight 140.16 kg Constitutional Constitutional: no acute distress *Routine HEENT Exam Head: Present normocephalic Eye: Present EOMI and PERRL ENT: Present mucous membranes moist *Routine Neck Exam Neck: Present supple; Absent lymphadenopathy *Routine Respiratory Exam Respiratory: Present CTA bilaterally *Routine Cardiovascular Exam Cardiovascular: Present RRR *Routine Abdominal Exam Abdominal: Present soft and normoactive bowel sounds; Absent tenderness *Routine Rectal Exam Rectal:: deferred *Routine Genitalia Exam Genitalia:: deferred *Routine Extremities Exam Extremities: Absent cyanosis, clubbing or edema *Routine Skin Exam Skin: Present warm; Absent rash *Routine Neurological Exam Neurological: Present alert and oriented X3 Assessment and Plan *Assessment and plan (1) Acute kidney injury (nontraumatic): Status: Acute Category: Medical Code(s): N17.9 - Acute kidney failure, unspecified (2) Metabolic acidosis: Status: Acute Category: Medical Code(s): E87.20 - Acidosis, unspecified (3) Body mass index (BMI) of 50-59.9 in adult: Status: Acute Category: Medical Code(s): Z68.43 - Body mass index [BMI] 50.0-59.9, adult (4) PARI (obstructive sleep apnea): Status: Acute Category: Medical Code(s): G47.33 - Obstructive sleep apnea (adult) (pediatric) (5) Hypothyroidism: Status: Chronic Qualifiers: Hypothyroidism type: unspecified Qualified Code(s): E03.9 - Hypothyroidism, unspecified Category: Medical Code(s): E03.9 - Hypothyroidism, unspecified (6) Hypertension: Status: Chronic Qualifiers: Hypertension type: essential hypertension Qualified Code(s): I10 - Essential (primary) hypertension Category: Medical Code(s): I10 - Essential (primary) hypertension (7) Diabetes type 2, uncontrolled: Status: Chronic Qualifiers: Glycemic state: with hyperglycemia Qualified Code(s): E11.65 - Type 2 diabetes mellitus with hyperglycemia Category: Medical Code(s): E11.65 - Type 2 diabetes mellitus with hyperglycemia (8) Hyperlipemia: Status: Chronic Qualifiers: Hyperlipidemia type: unspecified Qualified Code(s): E78.5 - Hyperlipidemia, unspecified Category: Medical Code(s): E78.5 - Hyperlipidemia, unspecified Plan Patient is a 63-year-old female with past medical history of diabetes mellitus, hypothyroidism hyperlipidemia hypertension who presents to the hospital due to generalized weakness. Patient mentions she has not been eating well and she has poor oral intake since then. Patient otherwise denied nausea vomiting diarrhea. On further evaluation patient was found to have elevated creatinine and was admitted for acute kidney injury. Assessment and plan Acute kidney injury likely prerenal Generalized weakness likely secondary to dehydration Start gentle IV fluid therapy with normal saline Hold nephrotoxic medications monitor BMP Monitor and replace electrolytes Diabetes mellitus Start insulin sliding scale Morbid obesity Complicates all care Counseled on weight loss Chronic medical conditions Obstructive sleep apnea Hypothyroidism Hypertension Hyperlipidemia -Resume home rosuvastatin, levothyroxine DVT prophylaxis-heparin
[2024-04-18 23:18] LABS: Creatine Kinase > 3200 U/L (30-135)
--- NOTE | 2024-04-18 23:20 | PC.NURSE ---
Patient arrived to floor via wheelchair from ED at 23:15.
[2024-04-18] MEDS: HEPARIN SODIUM 5,000 UNIT/ML VIAL 5000 UNIT SUBCUT (23:47)
[2024-04-18] MEDS: 0.9 % SODIUM CHLORIDE 1000ML 1,000 ML 50 ML IV (23:48)
[2024-04-19 02:27] LABS: Troponin I 0.02 ng/ml (0.00-0.034)
[2024-04-19 04:00] VITALS: BP 115/65; PULSE 91; RESP 17; TEMP 36.4; O2SAT 98; BMI 52.5
--- NOTE | 2024-04-19 04:19 | PC.NURSE ---
Addendum entered by Yulisa Hebert RN 04/19/24 06:24: modified normal saline infusion this morning (original - 50 mL/hr); normal saline is now to be infused at 75 mL/hr. Addendum entered by Yulisa Hebert RN 04/19/24 06:20: Urine sample was taken and sent to lab at this time. Original Note: Ms Kimberly Thompson was newly admitted this shift on behalf of an acute kidney injury and metabolic acidosis. She has complained of unsteadiness with ambulation and weakness in her legs; she has requested to use a wheelchair to assist her at this time. She can move feebly on her own in bed. She also has a history of diabetes, vitamin D deficiency, obstructive sleep apnea, hypothyroidism, hyperlipidemia, and hypertension. She is alert and oriented x4. Upon auscultation, her lungs were clear, S1/S2 heart sounds could be heard, and bowel sounds were active. Her heart rate has been tachycardic this shift during vital sign assessments; other findings have been stable. She has not complained of any pain during this shift; however, she stated that if she were to ever need pain medication, she would only take Tylenol or ibuprofen, nothing else. She was given subcutaneous heparin per MAR and currently has normal saline infusing at 50 mL/hr. She was observed to have eyes closed, respirations even and unlabored on room air, and no apparent distress periodically during the night since arriving to the floor. A family member has remained at bedside. She was given a few different snacks this shift. At this time, she does not have any further complaints. Home medication reconciliation was completed this shift. No acute changes noted thus far. Call light within reach. A urine sample (UA/UDS) remains uncollected thus far.
[2024-04-19 07:47] LABS: Amphetamine/Metha Screen,Urine Negative ng/ml (<1000)
[2024-04-19 07:48] LABS: Barbiturates Screen,Urine Negative ng/ml (<200); Benzodiazepines Screen,Urine Negative ng/ml (<200)
[2024-04-19 07:49] LABS: Cannabinoid Screen,Urine Negative ng/ml (<50)
[2024-04-19 07:50] LABS: Cocaine Screen,Urine Negative ng/ml (<300); Methadone Screen,Urine Negative ng/ml (<300)
[2024-04-19 07:51] VITALS: BP 128/62; PULSE 91; RESP 14; TEMP 36.8; O2SAT 99
[2024-04-19 07:51] LABS: Opiate Screen,Urine Negative ng/ml (<300)
[2024-04-19 07:52] LABS: Phencyclidine Screen,Urine Negative ng/ml (<25)
[2024-04-19] MEDS: HEPARIN SODIUM 5,000 UNIT/ML VIAL 5000 UNIT SUBCUT ×3 (08:28→22:39)
[2024-04-19] MEDS: LEVOTHYROXINE 100MCG (0.1MG) TAB 100 MCG PO (08:28)
--- NOTE | 2024-04-19 09:03 | SW/DCPLANNER ---
Addendum entered by Lynnette Pierre RN 04/22/24 09:41: Patient has been accepted to [facility] and plan is for discharge today. Number to call report to is [phone] and fax number to send packet is [phone]. Addendum entered by Gladys Ibanez 04/21/24 12:58: Patient is now interested in [facility] placement. Patient has requested information be faxed to the following facilities: [facility], [facility] and [facility]. Addendum entered by Gladys Ibanez 04/21/24 10:00: Patient expressed to MD this AM an interest in placement at time of discharge. I discussed w/ patient the option of placement this AM. Due to patient only having Medicare part B she would need Medicaid placement. I explained to patient how Medicaid placement works. Patient expressed that she is not interested in Medicaid placement at this time. Family was at bedside during our conversation. Patient continues to be agreeable to home health services (no preference) but refuses placement due to Medicaid and required payment of monthly income minus $40. I will continue to follow up w/ this patient. Discharge date is unknown at this time. Original Note: I spoke w/ this patient regarding plans once medically stable for discharge. PT/OT evaluated patient this AM and recommended SNF level of care at time of discharge. Patient is adamant to return home once medically stable. Patient stated that she has babies at home she needs to tend to and is not interested in placement. Patient is agreeable to home health services if covered by insurance. Per patient she does not have a home health agency preference. I will set up home health services at time of discharge. Discharge date is unknown at this time.
--- NOTE | 2024-04-19 09:11 | HMH.PHAINT1 ---
Pharmacy Intervention Comments: HOME MEDICATION LIST VERIFIED USING LIST FROM OUTPATIENT PHARMACY AND PT INTERVIEW
--- NOTE | 2024-04-19 09:33 | HMH.PTEV ---
Physical Therapy Evaluation Rehab PT IP Evaluation Start: 04/19/24 07:23 Freq: ONCE Status: Active Protocol: Document 04/19/24 08:58 KEYLA (Rec: 04/19/24 09:32 KEYLA [id number]) Subjective/History History History Patient is a 63-year-old female with past medical history of diabetes mellitus, hypothyroidism hyperlipidemia hypertension who presents to the hospital due to generalized weakness. Pt states she lives at home w/ her , kids, and grandkids. Additionally, she states she has steps to get into home, but her has built a ramp to get into the house. She reports previously being independent w/ ambulation and only using a cane when she felt like she needed the extra support. However, she states using a powerchair the last few days. Pt chief c/o generalized weakness, that has resulted in her decreased independence at home and with ambulation. Subjective Subjective Pt presents sitting in bedside chair this morning. Pt is 3x oriented and c/o generalized weakness and feelings of unsteadiness. Pt consents to therapy services. New diagnosis of cancer in past 12 No months? Rehab PT IP Eval Objective Appearance Patient Behavior Appropriate,Cooperative Patient Orientation Person,Place,Birthday Difficulty following instructions none Speech Pattern Clear,Appropriate,Coherent Ambulation Patient Able to Ambulate No Balance Ability to Arise Able, uses arms to help Sitting Balance Steady, safe Standing Balance Unsteady Dynamic Standing Balance Ability Zero Transfers Sit to Stand Chair Transfer Ability Maximum x 2 (75% assist) MMT RLE PT MMT WFL Abnormal MMT Grade L Hip Flexor weakness <3- LLE PT MMT WFL Abnormal MMT Grade L Hip Flexor weakness <3- Rehab PT IP prob,goals,plan Problems Date of Evaluation: 04/19/24 PT IP Problems Bed Mobility,Transfers,Gait, Balance Rehab Potential Rehab Potential Good Equipment Needs Assistive Devices Rolling / Wheeled Walker Plan PT Intervention Plan Bed Mobility,Transfers,Gait, Balance,Therapeutic Exercise PT Plan Frequency BID Duration LOS Discharge Goals Bed Transfer Ability Moderate x 2 (50% assist) Sit to Stand Chair Transfer Ability Moderate x 2 (50% assist) Ambulation Assistive Device Rolling Walker Ambulation Distance (feet) 10 Discharge Plan PT Discharge Plan Currently, pt is most appropriate for rehab placement once medically stable for d/c. Pt demonstrates poor static standing balance, decreased strength for transfers and therapeutic activity, and decreased ability to ambulate vs baseline. Eval Complexity Eval Charge Codes 60534 - High Complexity PHYSICIAN CERTIFICATION: I certify the specified therapy services for Kimberly Thompson are required, authorized, and reviewed every 30 days.
--- NOTE | 2024-04-19 10:01 | HMH.OTEV ---
OT Inpatient Evaluation Rehab OT IP Evaluation Start: 04/19/24 07:23 Freq: ONCE Status: Active Protocol: Document 04/19/24 09:51 EULALIA (Rec: 04/19/24 10:01 [id number] Rehab OT IP Assessment Subjective History Pt oriented x 3 on arrival. Pt agreeable to engage in therapy evaluation. Pt admitted on 04/18/24 due to ARSH ang generalized weakness. Patient is a 63-year-old female with past medical history of diabetes mellitus, hypothyroidism hyperlipidemia hypertension who presents to the hospital due to generalized weakness. Pt states she lives at home w/ her , kids, and grandkids. Additionally, she states she has steps to get into home, but her has built a ramp to get into the house. She reports previously being independent w/ ambulation and only using a cane when she felt like she needed the extra support. However, she states using a powerchair the last few days. Pt also claims she is normally independent with dressing and feeding, but does need assistance with bathing at times . Pt chief c/o generalized weakness, that has resulted in her decreased independence at home and with ambulation. Subjective My legs feel like they are going to give out. Pt resting in chair on arrival . Pt agreeable to engage in sit to stand after max verbal prompts for encouragement. Pt re-educated on using chair arms to push up from. Pt able to complete sit to stand from chair with min assist x 2. Upon standing, pt only able to stand for ~10 seconds before having to sit back down in chair due to fatigue and weakness. Therapist recommended to patient for short term rehab, but pt continued to refused. She was agreeable with Home health. Objective Patient Orientation Person,Place,Birthday Right Upper Extremity Gross ROM WFL Left Upper Extremity Gross ROM WFL Transfer Training Sit/Stand Transfer Assist Level Minimal x 2 (25% assist) Rehab OT IP prob,goals,plan Problems Date of Evaluation: 04/19/24 OT IP Problems Bed Mobility Rehab Potential Rehab Potential Good Equipment Needs Assistive Devices Rolling / Wheeled Walker Plan OT intervention Plan Bed Mobility,Transfers,Balance ,Self care,Safety,Therapeutic Exercise OT Plan Frequency Daily Duration LOS Discharge Goals Bed Mobility Ability Assistance x1 Sit to Stand Chair Transfer Ability Minimal x 1 (25% assist) Chair Transfer Ability Minimal x 1 (25% assist) Chair Transfer Technique Sit to/from Ambulatory Chair Transfer Assistive Devices Rolling Walker Feeding Ability Assist with Tray Set Up Lower Body Dressing Ability Moderate Assistance Upper Body Dressing Ability Minimal Assistance Bathing Ability Moderate Assistance Performing Toilet Hygiene Ability Moderate Assistance Overall Commode/Toilet Transfer Ability Minimal Assistance Commode/Toilet Transfer Technique Sit to/from Ambulatory Commode/Toilet Transfer Assistive Grab Bars Devices Oral Care Assist Contact Guard Decrease in Endurance No Discharge Plan OT Discharge Plan Pt will continue to be seen for OT services while at [facility]. Patient would benefit most from short term rehab services at [facility] following discharge, but patient continued to refuse this plan. If she does return home, therapist recommends home health OT evaluation for continued skilled therapy. Continued skilled therapy is important in order for patient to improve strength, safety, endurance, ADL independence, and functional transfers to reach PLOF. Eval Complexity Eval Charge Codes 75779 - Moderate Complexity PHYSICIAN CERTIFICATION: I certify the specified therapy services for Kimberly Thompson are required, authorized, and reviewed every 30 days.
--- NOTE | 2024-04-19 11:31 | PC.NURSE ---
midline placed in lt upper arm
[2024-04-19] MEDS: humaLOG 100 UNITS/ML 10ML VIAL (SSI) SUBCUT (12:20)
[2024-04-19 12:29] LABS: POC Glucose,Bedside 168 (70-110)
[2024-04-19 13:42] VITALS: BMI 52.5
[2024-04-19 14:01] LABS: Basophils # 0.1 K/mm3 (0-0.2); Basophils % 0.6 % (0.1-2.0); Eosinophils # 0.5 K/mm3 (0.0-0.4); Eosinophils % 4.8 % (0.1-12.0); Hematocrit 32.8 % (37.0-47.0); Lymphocytes # 2.2 K/mm3 (0.7-4.5); Lymphocytes % 23.5 % (10-50); Mean Corpuscular HGB Conc 33.7 g/dL (31.8-35.4); Mean Corpuscular Hemoglobin 27.7 pg (27.0-31.2); Mean Corpuscular Volume 82.1 fl (81-99); Mean Platelet Volume 7.3 fl (7.4-10.4); Monocytes # 0.7 K/mm3 (0.1-1.0); Monocytes % 7.5 % (1.7-9.3); Neutrophils # 5.9 K/mm3 (1.8-7.8); Neutrophils % 63.6 % (37.0-80.0); Platelet Count 264 K/mm3 (142-424); Red Blood Count 3.99 M/mm3 (4.20-5.40); Red Cell Distribution Width 15.7 % (11.5-17.5); White Blood Count 9.3 K/mm3 (4.8-10.8)
[2024-04-19 14:30] LABS: Chloride 108 mmol/L (98-107); Potassium 4.2 mmoL/L (3.5-5.1); Sodium 138 mmol/L (136-145)
[2024-04-19 14:33] LABS: Anion Gap 17.2 mEq/L (5-15); Blood Urea Nitrogen 62 mg/dl (7-17); Calcium 8.9 mg/dl (8.4-10.2); Carbon Dioxide 17 mmol/L (22.0-30.0); Creatinine Clearance Estimated 16 mL/min (50-200); Estimated Glomerular Filt Rate 18 ml/min (>60); GFR (African American) 21 ML/MIN (>60); Glucose 125 mg/dl (74-100)
--- NOTE | 2024-04-19 14:47 | EXP.ACUTE.PN ---
Subjective *Date: 04/19/24 *Time: 14:47 Interval history: Continues to have pain and weakness in her legs. More weakness than pain. Stable on room air. No nausea or vomiting. No chest pain. Denies shortness of breath. States she is having increased urination describes urine as frothy but not tea colored., Medical Exam Vital signs and Labs for Last 24 Hours: Vital Signs Temp Pulse Pulse Resp BP BP Pulse Ox 04/19/24 13:00 04/19/24 11:00 04/19/24 09:00 04/19/24 08:00 04/19/24 07:51 98.2 F 91 H 14 128/62 99 04/19/24 06:40 04/19/24 05:00 04/19/24 04:00 97.6 F 91 H 17 115/65 98 04/19/24 03:00 04/19/24 01:00 04/18/24 23:15 98.3 F 115 H 18 124/73 99 04/18/24 23:00 04/18/24 22:57 110 H 18 100 04/18/24 22:40 98.1 F 110 H 18 138/74 04/18/24 22:15 110 H 136/72 100 04/18/24 21:30 105 H 138/74 98 04/18/24 20:33 105 H 139/70 99 04/18/24 20:00 110 H 141/82 H 94 L 04/18/24 19:41 97.9 F 118 H 18 151/104 H 98 O2 Del Method 04/19/24 13:00 Room Air 04/19/24 11:00 Room Air 04/19/24 09:00 Room Air 04/19/24 08:00 Room Air 04/19/24 07:51 Room Air 04/19/24 06:40 Room Air 04/19/24 05:00 Room Air 04/19/24 04:00 Room Air 04/19/24 03:00 Room Air 04/19/24 01:00 Room Air 04/18/24 23:15 Room Air 04/18/24 23:00 Room Air 04/18/24 22:57 Room Air 04/18/24 22:40 Room Air 04/18/24 22:15 04/18/24 21:30 04/18/24 20:33 04/18/24 20:00 04/18/24 19:41 Room Air Intake and Output 04/18/24 04/19/24 04/19/24 23:59 07:59 15:59 Intake Total 111 / 591 480 / 591 Output Total 500 / 500 0 / 500 Balance -389 / 91 480 / 91 Intake: Intake, Oral Amount 111 / 591 480 / 591 Output: Output, Urine Amount 500 / 500 0 / 500 Other: Number of Voids 1 Number of Unmeasured Voids 1 Weight 134.6 kg 134.6 kg 134.6 kg Patient Weight 04/19/24 23:59 Weight 134.6 kg Laboratory Results - last 24 hr 04/18/24 20:07: Sodium 138, Potassium 4.4, Chloride 106, Carbon Dioxide 14 L, Anion Gap 22.4 H, BUN 62 H, Creatinine 2.60 H, Estimated Creat Clear 18, Estimated GFR 18 L*, Est GFR ( Amer) 22 L, Glucose 143 H, Calcium 9.3, Total Bilirubin 0.9, AST 172 H, ALT 52, Alkaline Phosphatase 284 H, Troponin I 0.02, NT-Pro-B Natriuret Pep 279 H, Total Protein 8.6 H, Albumin 4.5, Globulin 4.1 H, Albumin/Globulin Ratio 1.1, TSH 31.10 H, Free T4 Index 1.4 L, Thyroxine (T4) 4.7 L, T3 Uptake 29 04/18/24 20:12: SARS-CoV-2 (PCR) Not detected, Influenza A Untype (PCR) Not detected, Influenza Type B (PCR) Not detected 04/18/24 21:47: VBG pH 7.26 L, VBG pCO2 36.1, VBG pO2 34.4, VBG HCO3 15.7 L, VBG Total CO2 16.8 L, VBG O2 Saturation 63.4, VBG Base Excess -11.4 L, VBG Lactic Acid 1.4 04/18/24 22:19: WBC 11.3 H, RBC 4.53, Hgb 12.7, Hct 37.7, MCV 83.2, MCH 28.1, MCHC 33.7, RDW 15.8, Plt Count 290, MPV 7.4, Neut % (Auto) 65.6, Lymph % (Auto) 22.8, [place] % (Auto) 7.0, Eos % (Auto) 3.7, Baso % (Auto) 0.9, Neut # (Auto) 7.4, Lymph # (Auto) 2.6, [place] # (Auto) 0.8, Eos # (Auto) 0.4, Baso # (Auto) 0.1, Total Creatine Kinase > 3200 H*, Troponin I 0.02, Salicylates < 1.0 L, Acetaminophen < 10 L, Plasma/Serum Alcohol < 10 04/19/24 01:35: Troponin I 0.02 04/19/24 06:17: Urine Opiates Screen Negative, Urine Methadone Screen Negative, Ur Barbituates Screen Negative, Ur Phencyclidine Scrn Negative, Ur Amphetamines Screen Negative, U Benzodiazepines Scrn Negative, Urine Cocaine Screen Negative, U Marijuana (THC) Screen Negative 04/19/24 12:04: POC Glucose 168 H 04/19/24 13:45: WBC 9.3, RBC 3.99 L, Hct 32.8 L, MCV 82.1, MCH 27.7, MCHC 33.7, RDW 15.7, Plt Count 264, MPV 7.3 L, Neut % (Auto) 63.6, Lymph % (Auto) 23.5, [place] % (Auto) 7.5, Eos % (Auto) 4.8, Baso % (Auto) 0.6, Neut # (Auto) 5.9, Lymph # (Auto) 2.2, [place] # (Auto) 0.7, Eos # (Auto) 0.5 H, Baso # (Auto) 0.1, Sodium 138, Potassium 4.2, Chloride 108 H, Carbon Dioxide 17 L, Anion Gap 17.2 H, BUN 62 H, Creatinine 2.70 H, Estimated Creat Clear 16, Estimated GFR 18 L*, Est GFR ( Amer) 21 L, Glucose 125 H, Calcium 8.9 I & O for Labs for Last 24 Hours: Intake & Output 04/16/24 04/17/24 04/18/24 04/19/24 23:59 22:59 23:59 23:59 Intake Total 591 / 591 Output Total 500 / 500 Balance 91 / Weight 134.6 kg 134.6 kg Constitutional: Present no acute distress, morbidly obese, chronically ill appearing and cooperative Head: Present atraumatic and normocephalic ENT: Present normal exam Respiratory: Absent accessory muscle use, rhonchi, stridor, wheezes or crackles Cardiac: Present Reg Rate and Rhythm GI: Present soft and normal bowel sounds; Absent distention or tenderness Extremities: Present normal inspection and full ROM; Absent edema Skin: Present intact; Absent erythema Neuro: Present Grossly Intact, alert, awake, oriented x 3 and moves all extremities Assessment and Plan *Assessment and plan (1) Rhabdomyolysis: Status: Acute Category: Medical Code(s): M62.82 - Rhabdomyolysis (2) Acute kidney injury (nontraumatic): Status: Acute Category: Medical Code(s): N17.9 - Acute kidney failure, unspecified (3) Metabolic acidosis: Status: Acute Category: Medical Code(s): E87.20 - Acidosis, unspecified (4) Body mass index (BMI) of 50-59.9 in adult: Status: Acute Category: Medical Code(s): Z68.43 - Body mass index [BMI] 50.0-59.9, adult (5) PARI (obstructive sleep apnea): Status: Acute Category: Medical Code(s): G47.33 - Obstructive sleep apnea (adult) (pediatric) (6) Hypothyroidism: Status: Chronic Qualifiers: Hypothyroidism type: unspecified Qualified Code(s): E03.9 - Hypothyroidism, unspecified Category: Medical Code(s): E03.9 - Hypothyroidism, unspecified (7) Hypertension: Status: Chronic Qualifiers: Hypertension type: essential hypertension Qualified Code(s): I10 - Essential (primary) hypertension Category: Medical Code(s): I10 - Essential (primary) hypertension (8) Diabetes type 2, uncontrolled: Status: Chronic Qualifiers: Glycemic state: with hyperglycemia Qualified Code(s): E11.65 - Type 2 diabetes mellitus with hyperglycemia Category: Medical Code(s): E11.65 - Type 2 diabetes mellitus with hyperglycemia (9) Hyperlipemia: Status: Chronic Qualifiers: Hyperlipidemia type: unspecified Qualified Code(s): E78.5 - Hyperlipidemia, unspecified Category: Medical Code(s): E78.5 - Hyperlipidemia, unspecified Plan Patient is a 63-year-old female with past medical history of diabetes mellitus, hypothyroidism hyperlipidemia hypertension who presents to the hospital due to generalized weakness. Patient mentions she has not been eating well and she has poor oral intake since then. Patient otherwise denied nausea vomiting diarrhea. On further evaluation patient was found to have elevated creatinine and was admitted for acute kidney injury. CK elevated greater than 3200. Concern rhabdo was the underlying cause of her ARSH. Continue IV fluids. Close monitoring of kidney function. Problems addressed as follows: Rhabdomyolysis Acute kidney injury -Increase fluids with normal saline at 150 cc an hour. Close monitoring of output -Creatinine remains elevated at 2.7, BUN 64. Unable to obtain labs this morning, labs obtained this afternoon. Repeat CBC, CMP, magnesium ordered for the morning. -Avoiding statin and SAQIB/ARB -Repeat CK ordered for the morning to monitor trend Generalized weakness: Evaluated by therapy, recommend placement. Patient states that she is going home. Will discharge with home health when medically stable Diabetes mellitus -A1c pending. Continue sliding scale insulin with fingersticks ACHS Morbid obesity: Complicates all care Chronic medical conditions Obstructive sleep apnea Hypothyroidism: TSH elevated at 31. Increase levothyroxine to 100 mcg daily Hypertension: Monitor for now, holding blood pressure medication in the setting of ARSH. Blood pressure acceptable at this time. Goal less than 180/100 Hyperlipidemia: Holding statin in the setting of rhabdomyolysis DVT prophylaxis with heparin Full code Diabetic diet
[2024-04-19 15:55] LABS: Hemoglobin A1C 8.6 % (4.0-6.0)
[2024-04-19 16:00] VITALS: BP 125/48; PULSE 85; RESP 15; TEMP 36.6; O2SAT 100
[2024-04-19] MEDS: LEVOTHYROXINE SODIUM 100 MCG VIAL IV (16:32)
[2024-04-19] MEDS: 0.9 % SODIUM CHLORIDE 1000ML 1,000 ML 150 ML IV ×2 (16:34→22:39)
[2024-04-19 16:38] LABS: POC Glucose,Bedside 127 (70-110)
[2024-04-19 16:44] LABS: POC Glucose,Bedside 70 (70-110)
[2024-04-19 20:00] VITALS: BP 126/75; PULSE 101; RESP 18; TEMP 36.7; O2SAT 100
[2024-04-19 21:06] LABS: POC Glucose,Bedside 173 (70-110)
--- NOTE | 2024-04-20 00:23 | PC.NURSE ---
Patient requested for her glucose to be checked at the bedside at this time after using the bathroom. She stated that she felt a little lightheaded. Her fingerstick blood glucose was 136.
[2024-04-20 00:33] LABS: POC Glucose,Bedside 136 (70-110)
[2024-04-20 03:47] VITALS: BP 152/79; PULSE 94; RESP 20; TEMP 36.5; O2SAT 100; BMI 52.5
--- NOTE | 2024-04-20 05:46 | PC.NURSE ---
Patient is alert and oriented x4. Patient was observed to have eyes closed, respirations even and unlabored on room air, and no apparent distress throughout the shift. Patient's family has been at bedside through the night. Patient family and [facility] staff have assisted the patient into the wheelchair to be taken to the bathroom. Patient continues to be unsteady on her feet and she states that she continues to feel very weak. Patient has had adequate urine output this shift; however, she reports having urgency and frequency, frothy urine, and has been passing blood, as well as an unidentified clot she described as a piece of fat. Patient was given her scheduled medications per MAR and has normal saline infusing at 150 mL/hr through her midline (left upper arm). She refused to take insulin coverage earlier this shift at 21:00, stating that she will be fine and that it was just what [I] ate. Patient has not had any further complaints this shift. Her heart rate has been slightly tachycardic this shift during vital sign assessments. She did report one incident of feeling lightheaded around midnight after using the bathroom (see prior note). Her blood sugar was checked per her request, and it was 136. At this time, the patient is resting supine in bed. No acute changes noted thus far. Call light within reach.
[2024-04-20] MEDS: LEVOTHYROXINE 100MCG (0.1MG) TAB 100 MCG PO (06:53)
[2024-04-20] MEDS: 0.9 % SODIUM CHLORIDE 1000ML 1,000 ML 150 ML IV ×3 (06:53→21:02)
[2024-04-20 07:07] LABS: POC Glucose,Bedside 108 (70-110)
[2024-04-20 07:21] VITALS: BP 151/73; PULSE 94; RESP 20; TEMP 37.2; O2SAT 99
[2024-04-20 08:00] VITALS: PULSE 94
[2024-04-20] MEDS: HEPARIN SODIUM 5,000 UNIT/ML VIAL 5000 UNIT SUBCUT ×3 (08:11→22:54)
[2024-04-20] MEDS: CARVEDILOL 6.25MG TABLET 6.25 MG PO ×2 (08:11→21:03)
[2024-04-20 08:39] LABS: Basophils # 0.1 K/mm3 (0-0.2); Basophils % 0.7 % (0.1-2.0); Eosinophils # 0.4 K/mm3 (0.0-0.4); Eosinophils % 5.3 % (0.1-12.0); Hematocrit 30.9 % (37.0-47.0); Hemoglobin 10.5 g/dL (12.2-16.2); Lymphocytes # 1.5 K/mm3 (0.7-4.5); Lymphocytes % 20.3 % (10-50); Mean Corpuscular Hemoglobin 28.3 pg (27.0-31.2); Mean Corpuscular Volume 83.4 fl (81-99); Mean Platelet Volume 7.3 fl (7.4-10.4); Monocytes # 0.4 K/mm3 (0.1-1.0); Monocytes % 5.7 % (1.7-9.3); Neutrophils # 5.1 K/mm3 (1.8-7.8); Neutrophils % 67.9 % (37.0-80.0); Platelet Count 249 K/mm3 (142-424); Red Cell Distribution Width 15.8 % (11.5-17.5); White Blood Count 7.4 K/mm3 (4.8-10.8)
[2024-04-20 08:49] LABS: Anion Gap 13.1 mEq/L (5-15); Blood Urea Nitrogen 45 mg/dl (7-17); Calcium 8.6 mg/dl (8.4-10.2); Carbon Dioxide 17 mmol/L (22.0-30.0); Chloride 113 mmol/L (98-107); Creatinine Clearance Estimated 22 mL/min (50-200); Estimated Glomerular Filt Rate 25 ml/min (>60); GFR (African American) 30 ML/MIN (>60); Glucose 146 mg/dl (74-100); Potassium 4.1 mmoL/L (3.5-5.1); Sodium 139 mmol/L (136-145)
[2024-04-20 09:22] LABS: Creatine Kinase 7436 U/L (30-135)
[2024-04-20 10:56] LABS: Microscopic, Urine URINE MICROSCOPIC (MICROSCOPIC)
[2024-04-20 10:58] LABS: POC Glucose,Bedside 141 (70-110)
[2024-04-20 11:03] LABS: Appearance,Urine CLEAR (Clear); Bilirubin,Urine Negative (Negative); Blood, Urine 3+ (Negative); Color,Urine YELLOW (Yellow); Glucose,Urine (UA) Negative (Negative); Ketones,Urine Negative (Negative); Leukocyte Esterase,Urine TRACE (Negative); Nitrate,Urine Negative (Negative); Protein,Urine 1+ (Negative); Urobilinogen,Urine 0.2 EU/dl (0.2)
[2024-04-20 11:19] LABS: Bacteria,Urine Trace /lpf; Squamous Epithelial Cell,Urine Occasional #/hpf (0-5)
--- NOTE | 2024-04-20 14:05 | EXP.ACUTE.PN ---
Subjective *Date: 04/20/24 *Time: 14:17 Interval history: States she is feeling better today. Less muscle pain. No nausea or vomiting. No chest pain. On room air. Medical Exam Vital signs and Labs for Last 24 Hours: Vital Signs Temp Pulse Resp BP Pulse Ox O2 Del Method 04/20/24 13:00 Room Air 04/20/24 11:00 Room Air 04/20/24 09:00 Room Air 04/20/24 08:00 94 H Room Air 04/20/24 07:21 98.9 F 94 H 20 151/73 H 99 Room Air 04/20/24 07:00 Room Air 04/20/24 05:00 Room Air 04/20/24 03:47 97.7 F 94 H 20 152/79 H 100 Room Air 04/20/24 03:00 Room Air 04/20/24 01:00 Room Air 04/19/24 23:00 Room Air 04/19/24 21:00 Room Air 04/19/24 20:00 101 H 18 100 Room Air 04/19/24 20:00 98.0 F 101 H 18 126/75 100 Room Air 04/19/24 18:29 Room Air 04/19/24 17:00 Room Air 04/19/24 16:00 97.9 F 85 15 125/48 L 100 Room Air 04/19/24 15:00 Room Air Intake and Output 04/19/24 04/20/24 04/20/24 23:59 07:59 15:59 Intake Total 170 / 3099 2338 / 2818 480 / 2818 Output Total 0 / 0 0 / 0 Balance 170 / 2599 2338 / 2818 480 / 2818 Intake: Intake, Oral Amount 170 / 961 200 / 680 480 / 680 Intake, Total IV Amount 2137 / 2137 0.9 % Sodium Chloride 1000ML 1, 2137 / 2137 000 ml @ 150 mls/hr IV .[id number] [facility] Rx#:[id number] Output: Output, Urine Amount 0 / 0 0 / 0 Other: Number of Unmeasured Voids 1 1 Weight 134.6 kg Patient Weight 04/20/24 23:59 Weight 134.6 kg Laboratory Results - last 24 hr 04/19/24 05:58: POC Glucose 127 H 04/19/24 13:45: WBC 9.3, RBC 3.99 L, Hgb 11.0 L D, Hct 32.8 L, MCV 82.1, MCH 27.7, MCHC 33.7, RDW 15.7, Plt Count 264, MPV 7.3 L, Neut % (Auto) 63.6, Lymph % (Auto) 23.5, [place] % (Auto) 7.5, Eos % (Auto) 4.8, Baso % (Auto) 0.6, Neut # (Auto) 5.9, Lymph # (Auto) 2.2, [place] # (Auto) 0.7, Eos # (Auto) 0.5 H, Baso # (Auto) 0.1, Sodium 138, Potassium 4.2, Chloride 108 H, Carbon Dioxide 17 L, Anion Gap 17.2 H, BUN 62 H, Creatinine 2.70 H, Estimated Creat Clear 16, Estimated GFR 18 L*, Est GFR ( Amer) 21 L, Glucose 125 H, Hemoglobin A1c 8.6 H, Calcium 8.9 04/19/24 16:28: POC Glucose 70 04/19/24 20:57: POC Glucose 173 H 04/20/24 00:26: POC Glucose 136 H 04/20/24 06:55: POC Glucose 108 04/20/24 08:30: WBC 7.4, RBC 3.70 L, Hgb 10.5 L, Hct 30.9 L, MCV 83.4, MCH 28.3, MCHC 34.0, RDW 15.8, Plt Count 249, MPV 7.3 L, Neut % (Auto) 67.9, Lymph % (Auto) 20.3, [place] % (Auto) 5.7, Eos % (Auto) 5.3, Baso % (Auto) 0.7, Neut # (Auto) 5.1, Lymph # (Auto) 1.5, [place] # (Auto) 0.4, Eos # (Auto) 0.4, Baso # (Auto) 0.1, Sodium 139, Potassium 4.1, Chloride 113 H, Carbon Dioxide 17 L, Anion Gap 13.1, BUN 45 H D, Creatinine 2.00 H D, Estimated Creat Clear 22, Estimated GFR 25 L, Est GFR ( Amer) 30 L D, Glucose 146 H, Calcium 8.6, Total Creatine Kinase 7436 H* D 04/20/24 10:49: POC Glucose 141 H 04/20/24 10:50: Urine Color Yellow, Urine Appearance Clear, Urine pH 6.0, Ur Specific [place] 1.020, Urine Protein 1+ A, Urine Glucose (UA) Negative, Urine Ketones Negative, Urine Blood 3+ A, Urine Nitrate Negative, Urine Bilirubin Negative, Urine Urobilinogen 0.2, Ur Leukocyte Esterase Trace, Urine RBC 10-20, Urine WBC 3-5, Ur Squamous Epith Cells Occasional, Urine Bacteria Trace I & O for Labs for Last 24 Hours: Intake & Output 04/17/24 04/18/24 04/19/24 04/20/24 22:59 23:59 23:59 23:59 Intake Total 761 / 3099 2818 / 2818 Output Total 500 / 500 0 / 0 Balance 261 / 2599 2818 / 2818 Weight 134.6 kg 134.6 kg 134.6 kg Constitutional: Present no acute distress, morbidly obese, chronically ill appearing and cooperative Head: Present atraumatic and normocephalic ENT: Present normal exam Respiratory: Absent accessory muscle use, rhonchi, stridor, wheezes or crackles Cardiac: Present Reg Rate and Rhythm GI: Present soft and normal bowel sounds; Absent distention or tenderness Extremities: Present normal inspection and full ROM; Absent edema Comment:: Midline and left upper extremity Skin: Present intact; Absent erythema Neuro: Present Grossly Intact, alert, awake, oriented x 3 and moves all extremities Assessment and Plan *Assessment and plan (1) Rhabdomyolysis: Status: Acute Category: Medical Code(s): M62.82 - Rhabdomyolysis (2) Acute kidney injury (nontraumatic): Status: Acute Category: Medical Code(s): N17.9 - Acute kidney failure, unspecified (3) Metabolic acidosis: Status: Acute Category: Medical Code(s): E87.20 - Acidosis, unspecified (4) Body mass index (BMI) of 50-59.9 in adult: Status: Acute Category: Medical Code(s): Z68.43 - Body mass index [BMI] 50.0-59.9, adult (5) PARI (obstructive sleep apnea): Status: Acute Category: Medical Code(s): G47.33 - Obstructive sleep apnea (adult) (pediatric) (6) Hypothyroidism: Status: Chronic Qualifiers: Hypothyroidism type: unspecified Qualified Code(s): E03.9 - Hypothyroidism, unspecified Category: Medical Code(s): E03.9 - Hypothyroidism, unspecified (7) Hypertension: Status: Chronic Qualifiers: Hypertension type: essential hypertension Qualified Code(s): I10 - Essential (primary) hypertension Category: Medical Code(s): I10 - Essential (primary) hypertension (8) Diabetes type 2, uncontrolled: Status: Chronic Qualifiers: Glycemic state: with hyperglycemia Qualified Code(s): E11.65 - Type 2 diabetes mellitus with hyperglycemia Category: Medical Code(s): E11.65 - Type 2 diabetes mellitus with hyperglycemia (9) Hyperlipemia: Status: Chronic Qualifiers: Hyperlipidemia type: unspecified Qualified Code(s): E78.5 - Hyperlipidemia, unspecified Category: Medical Code(s): E78.5 - Hyperlipidemia, unspecified Plan Patient is a 63-year-old female with past medical history of diabetes mellitus, hypothyroidism hyperlipidemia hypertension who presents to the hospital due to generalized weakness. Patient mentions she has not been eating well and she has poor oral intake since then. Patient otherwise denied nausea vomiting diarrhea. On further evaluation patient was found to have elevated creatinine and was admitted for acute kidney injury. CK elevated greater than 3200. Concern rhabdo was the underlying cause of her ARSH. Continue IV fluids. Close monitoring of kidney function. Problems addressed as follows: Rhabdomyolysis Acute kidney injury -CK increased to 7400. Will continue normal saline at 150 cc an hour. Making good urine. Kidney function with slight improvement, BUN 45, creatinine 2.0. -Repeat BMP ordered for this afternoon with CMP, CBC, magnesium ordered for the morning. - Avoiding statin and SAQIB/ARB -Repeat CK ordered for the afternoon and morning to monitor trend Generalized weakness: Evaluated by therapy, recommend placement. Patient states that she is going home. Will discharge with home health when medically stable Diabetes mellitus -A1c 8.6. Continue sliding scale insulin with fingersticks ACHS Morbid obesity: Complicates all care Chronic medical conditions Obstructive sleep apnea Hypothyroidism: TSH elevated at 31. Continue increased levothyroxine of 100 mcg daily Hypertension: Initiate carvedilol 6.25 mg twice daily, blood pressure elevated at 150/70, heart rate in the 90s Hyperlipidemia: Holding statin in the setting of rhabdomyolysis DVT prophylaxis with heparin Full code Diabetic diet
[2024-04-20 16:00] VITALS: BP 151/58; PULSE 88; RESP 18; TEMP 36.8; O2SAT 100
[2024-04-20 16:37] LABS: POC Glucose,Bedside 127 (70-110)
[2024-04-20 18:39] LABS: Chloride 113 mmol/L (98-107); Sodium 138 mmol/L (136-145)
[2024-04-20 18:40] LABS: Potassium 4.1 mmoL/L (3.5-5.1)
[2024-04-20 18:42] LABS: Blood Urea Nitrogen 42 mg/dl (7-17); Creatinine Clearance Estimated 23 mL/min (50-200); Estimated Glomerular Filt Rate 27 ml/min (>60); GFR (African American) 32 ML/MIN (>60)
[2024-04-20 18:43] LABS: Anion Gap 12.1 mEq/L (5-15); Calcium 8.7 mg/dl (8.4-10.2); Carbon Dioxide 17 mmol/L (22.0-30.0); Glucose 141 mg/dl (74-100)
--- NOTE | 2024-04-20 19:27 | PC.NURSE ---
pt resting supine in bed. no complaints of nausea or pain this shift. midline dressing changed using sterile technique. meds administered per aug. ns going at 150. pt has used the restroom with assistance throughout the shift. UA sent to lab. no complaints at this time. call light within reach.
[2024-04-20 19:30] LABS: Creatine Kinase 7313 U/L (30-135)
[2024-04-20 20:00] VITALS: BP 131/63; PULSE 72; RESP 17; TEMP 36.6; O2SAT 93
[2024-04-20 21:17] LABS: POC Glucose,Bedside 122 (70-110)
[2024-04-20] MEDS: ACETAMINOPHEN 325MG TAB 650 MG PO (22:55)
[2024-04-21] VITALS: BP 113/55; PULSE 80; RESP 18; TEMP 36.5; O2SAT 96
[2024-04-21 04:00] VITALS: BMI 52.7
[2024-04-21] MEDS: 0.9 % SODIUM CHLORIDE 1000ML 1,000 ML 150 ML IV (04:37)
[2024-04-21 05:00] VITALS: BP 124/76; PULSE 98; RESP 20; TEMP 36.8; O2SAT 97
--- NOTE | 2024-04-21 05:09 | PC.NURSE ---
Addendum entered by Yulisa Hebert RN 04/21/24 06:16: Patient's fingerstick blood glucose this morning (for 06:00) was 155. Patient refused to take insulin coverage this morning. Fingerstick blood glucose at 21:00 this shift was 122. Original Note: Patient is alert and oriented x4. Patient has stated this shift that she is so weak that [she] can hardly move. Patient's family has expressed concerns this shift. Patient's family and staff has helped roll the patient in bed due to her reported weakness. She was placed onto a purewick and has used the bedpan per her request and present mobility status. Patient has not gotten out of the bed thus far this shift. She has appeared to be very fatigued this shift and she has complained of a consistent mild headache. She was treated once per AUG with Tylenol. She was observed to have eyes closed, respirations even and unlabored on room air, and no apparent distress throughout the night. Her vital signs have been stable this shift with soft blood pressures and oxygen saturations greater than 90%. Patient has received her scheduled medications per AUG and currently has normal saline infusing at 150 mL/hr. At this time, the patient is resting in bed. Family has remained at bedside through the night. No acute changes noted thus far. Call light within reach.
[2024-04-21] MEDS: LEVOTHYROXINE 100MCG (0.1MG) TAB 100 MCG PO (06:22)
[2024-04-21 06:32] LABS: Anion Gap 11.7 mEq/L (5-15); Blood Urea Nitrogen 34 mg/dl (7-17); Calcium 8.5 mg/dl (8.4-10.2); Carbon Dioxide 17 mmol/L (22.0-30.0); Chloride 114 mmol/L (98-107); Creatinine Clearance Estimated 30 mL/min (50-200); Estimated Glomerular Filt Rate 35 ml/min (>60); GFR (African American) 42 ML/MIN (>60); Glucose 137 mg/dl (74-100); Potassium 3.7 mmoL/L (3.5-5.1); Sodium 139 mmol/L (136-145)
[2024-04-21 06:50] LABS: Creatine Kinase 5285 U/L (30-135)
[2024-04-21 07:04] LABS: Basophils # 0.1 K/mm3 (0-0.2); Eosinophils # 0.3 K/mm3 (0.0-0.4); Hemoglobin 9.9 g/dL (12.2-16.2); Lymphocytes # 1.5 K/mm3 (0.7-4.5); Lymphocytes % 23.3 % (10-50); Mean Corpuscular HGB Conc 33.2 g/dL (31.8-35.4); Mean Corpuscular Volume 84.2 fl (81-99); Mean Platelet Volume 7.2 fl (7.4-10.4); Monocytes # 0.4 K/mm3 (0.1-1.0); Monocytes % 6.8 % (1.7-9.3); Neutrophils % 63.9 % (37.0-80.0); Platelet Count 219 K/mm3 (142-424); Red Blood Count 3.53 M/mm3 (4.20-5.40); Red Cell Distribution Width 15.9 % (11.5-17.5); White Blood Count 6.3 K/mm3 (4.8-10.8)
[2024-04-21 07:21] LABS: Hematocrit 29.7 % (37.0-47.0)
[2024-04-21 07:33] VITALS: BP 119/63; PULSE 87; RESP 16; TEMP 36.9; O2SAT 100
[2024-04-21] MEDS: FUROSEMIDE 40MG/4ML VIAL 40 MG IV (09:01)
[2024-04-21] MEDS: CARVEDILOL 6.25MG TABLET 6.25 MG PO ×2 (09:01→21:21)
[2024-04-21] MEDS: HEPARIN SODIUM 5,000 UNIT/ML VIAL 5000 UNIT SUBCUT ×2 (09:01→22:22)
--- NOTE | 2024-04-21 10:00 | PC.NURSE ---
Patient's family unhooked patient's midline without calling out and unhooked the hub from the midline. PT was in the room at the time and instructed the family not to touch the midline and family did not comply. PT immediately informed RN and RN went and told charge, replaced hub as sterile as possible, due to family exposing end of line and educated family to not touch line. and to please call out for any needs.
[2024-04-21 11:48] LABS: POC Glucose,Bedside 196 (70-110)
--- NOTE | 2024-04-21 13:20 | P.PN_ITS ---
Subjective *Date: 04/21/24 *Time: 13:20 Interval history: Planing of feeling quite weak today. Stable on room air. Afebrile. No nausea or vomiting. Tolerating p.o. intake. Requiring significant assistance to get around. Unable to stand independently. Patient agreeable to placement at this time. Medical Exam Vital signs and Labs for Last 24 Hours: Vital Signs Temp Pulse Resp BP Pulse Ox O2 Del Method 04/21/24 07:33 98.5 F 87 16 119/63 100 Room Air 04/21/24 07:00 Room Air 04/21/24 05:00 Room Air 04/21/24 05:00 98.2 F 98 H 20 124/76 97 Room Air 04/21/24 03:00 Room Air 04/21/24 01:00 Room Air 04/21/24 00:00 97.7 F 80 18 113/55 L 96 Room Air 04/20/24 23:00 Room Air 04/20/24 21:00 Room Air 04/20/24 20:00 72 17 93 L Room Air 04/20/24 20:00 97.9 F 72 17 131/63 93 L Room Air 04/20/24 19:00 Room Air 04/20/24 17:00 Room Air 04/20/24 16:00 98.2 F 88 18 151/58 H 100 Room Air 04/20/24 15:00 Room Air Intake and Output 04/20/24 04/21/24 04/21/24 23:59 07:59 15:59 Intake Total 540 / 4776 1418 / 1778 360 / 1778 Output Total 0 / 0 0 / 0 Balance 540 / 4776 1418 / 1778 360 / 1778 Intake: Intake, Oral Amount 540 / 1370 150 / 510 360 / 510 Infusion Intake 1268 / 1268 0.9 % Sodium Chloride 1000ML 1, 1268 / 1268 000 ml @ 150 mls/hr IV .[id number] [facility] Rx#:[id number] Output: Output, Urine Amount 0 / 0 0 / 0 Other: Number of Unmeasured Voids 1 1 0 Number of Bowel Movements 1 Weight 134.9 kg Patient Weight 04/21/24 23:59 Weight 134.9 kg Laboratory Results - last 24 hr 04/20/24 16:30: POC Glucose 127 H 04/20/24 18:10: Sodium 138, Potassium 4.1, Chloride 113 H, Carbon Dioxide 17 L, Anion Gap 12.1, BUN 42 H, Creatinine 1.90 H, Estimated Creat Clear 23, Estimated GFR 27 L, Est GFR ( Amer) 32 L, Glucose 141 H, Calcium 8.7, Total Creatine Kinase 7313 H* 04/20/24 21:06: POC Glucose 122 H 04/21/24 05:56: WBC 6.3, RBC 3.53 L, Hgb 9.9 L, Hct 29.7 L, MCV 84.2, MCH 28.0, MCHC 33.2, RDW 15.9, Plt Count 219, MPV 7.2 L, Neut % (Auto) 63.9, Lymph % (Auto) 23.3, [place] % (Auto) 6.8, Eos % (Auto) 5.0, Baso % (Auto) 1.0, Neut # (Auto) 4.0, Lymph # (Auto) 1.5, [place] # (Auto) 0.4, Eos # (Auto) 0.3, Baso # (Auto) 0.1, Sodium 139, Potassium 3.7, Chloride 114 H, Carbon Dioxide 17 L, Anion Gap 11.7, BUN 34 H, Creatinine 1.50 H D, Estimated Creat Clear 30, Estimated GFR 35 L, Est GFR ( Amer) 42 L D, Glucose 137 H, Calcium 8.5, Total Creatine Kinase 5285 H* D 04/21/24 11:37: POC Glucose 196 H I & O for Labs for Last 24 Hours: Intake & Output 04/18/24 04/19/24 04/20/24 04/21/24 23:59 23:59 23:59 23:59 Intake Total 761 / 3099 [facility]8 / 4776 177 / 177 Output Total 500 / 500 0 / 0 0 / 0 Balance 261 / 2599 [facility] / 4776 1777 177 Weight 134.6 kg 134.6 kg 134.6 kg 134.9 kg Constitutional: Present no acute distress, morbidly obese, chronically ill appearing and cooperative Head: Present atraumatic and normocephalic ENT: Present normal exam Respiratory: Absent accessory muscle use, rhonchi, stridor, wheezes or crackles Cardiac: Present Reg Rate and Rhythm GI: Present soft and normal bowel sounds; Absent distention or tenderness Extremities: Present normal inspection and full ROM; Absent edema Comment:: Midline and left upper extremity Skin: Present intact; Absent erythema Neuro: Present Grossly Intact, alert, awake, oriented x 3 and moves all extremities Assessment and Plan *Assessment and plan (1) Rhabdomyolysis: Status: Acute Category: Medical Code(s): M62.82 - Rhabdomyolysis (2) Acute kidney injury (nontraumatic): Status: Acute Category: Medical Code(s): N17.9 - Acute kidney failure, unspecified (3) Metabolic acidosis: Status: Acute Category: Medical Code(s): E87.20 - Acidosis, unspecified (4) Body mass index (BMI) of 50-59.9 in adult: Status: Acute Category: Medical Code(s): Z68.43 - Body mass index [BMI] 50.0-59.9, adult (5) PARI (obstructive sleep apnea): Status: Acute Category: Medical Code(s): G47.33 - Obstructive sleep apnea (adult) (pediatric) (6) Hypothyroidism: Status: Chronic Qualifiers: Hypothyroidism type: unspecified Qualified Code(s): E03.9 - Hypothyroidism, unspecified Category: Medical Code(s): E03.9 - Hypothyroidism, unspecified (7) Hypertension: Status: Chronic Qualifiers: Hypertension type: essential hypertension Qualified Code(s): I10 - Essential (primary) hypertension Category: Medical Code(s): I10 - Essential (primary) hypertension (8) Diabetes type 2, uncontrolled: Status: Chronic Qualifiers: Glycemic state: with hyperglycemia Qualified Code(s): E11.65 - Type 2 diabetes mellitus with hyperglycemia Category: Medical Code(s): E11.65 - Type 2 diabetes mellitus with hyperglycemia (9) Hyperlipemia: Status: Chronic Qualifiers: Hyperlipidemia type: unspecified Qualified Code(s): E78.5 - Hyperlipidemia, unspecified Category: Medical Code(s): E78.5 - Hyperlipidemia, unspecified Plan Patient is a 63-year-old female with past medical history of diabetes mellitus, hypothyroidism hyperlipidemia hypertension who presents to the hospital due to generalized weakness. Patient mentions she has not been eating well and she has poor oral intake since then. Patient otherwise denied nausea vomiting diarrhea. On further evaluation patient was found to have elevated creatinine and was admitted for acute kidney injury. CK elevated >3200 . Rhabdomyolysis improving. Kidney function improving. Still quite weak. Necessitating placement. Discontinue IV fluids today. Close monitoring of kidney function. Problems addressed as follows: Rhabdomyolysis Acute kidney injury -CK peaked at about 7400, decreasing today. 5285 this morning on labs. Discontinue normal saline. Making good urine. Kidney function with improvement, BUN 34, creatinine 1.5. Consistent improvement over the past 48 hours. -Repeat BMP ordered for this afternoon with CMP, CBC, magnesium ordered for the morning. -Patient reports she began taking Crestor approximately 2 to 3 weeks ago. He when the her med rec shows Lipitor, she states she has not been on it for several months. Strong concern that this episode of rhabdomyolysis is related to her statin therapy. Recommend avoiding statin in the future - Repeat CK ordered for the afternoon and morning to monitor trend Generalized weakness: Evaluated by therapy, recommend placement. Patient is reevaluated placement, willing to go at this time. Case management assisting with rehab placement. Diabetes mellitus -A1c 8.6. Continue sliding scale insulin with fingersticks ACHS Morbid obesity: Complicates all care Chronic medical conditions Obstructive sleep apnea Hypothyroidism: TSH elevated at 31. Continue increased levothyroxine of 100 mcg daily Hypertension: Continue carvedilol 6.25 mg twice daily, blood pressure better controlled at 119/63 this morning. Heart rate in the 80s. Hyperlipidemia: Discontinue statin in the setting of rhabdomyolysis DVT prophylaxis with heparin Full code Diabetic diet
[2024-04-21 14:44] LABS: Chloride 112 mmol/L (98-107); Potassium 3.7 mmoL/L (3.5-5.1); Sodium 140 mmol/L (136-145)
[2024-04-21 14:47] LABS: Anion Gap 11.7 mEq/L (5-15); Blood Urea Nitrogen 34 mg/dl (7-17); Carbon Dioxide 20 mmol/L (22.0-30.0); Creatinine Clearance Estimated 28 mL/min (50-200); Estimated Glomerular Filt Rate 32 ml/min (>60); GFR (African American) 39 ML/MIN (>60); Glucose 195 mg/dl (74-100)
[2024-04-21 15:21] LABS: Creatine Kinase 5371 U/L (30-135)
[2024-04-21 16:00] VITALS: BP 118/60; PULSE 89; RESP 18; TEMP 36.5; O2SAT 93
[2024-04-21] MEDS: humaLOG 100 UNITS/ML 10ML VIAL (SSI) SUBCUT (17:47)
[2024-04-21 20:00] VITALS: BP 128/63; PULSE 98; RESP 18; TEMP 36.9; O2SAT 96
[2024-04-21 21:29] LABS: POC Glucose,Bedside 133 (70-110)
[2024-04-22] VITALS: BP 112/53; PULSE 86; RESP 20; TEMP 36.6; O2SAT 97
[2024-04-22 04:00] VITALS: BP 140/68; PULSE 82; RESP 19; TEMP 36.8; O2SAT 97; BMI 52.9
[2024-04-22] MEDS: LEVOTHYROXINE 100MCG (0.1MG) TAB 100 MCG PO (06:34)
[2024-04-22] MEDS: HEPARIN SODIUM 5,000 UNIT/ML VIAL 5000 UNIT SUBCUT (06:34)
[2024-04-22 06:48] LABS: POC Glucose,Bedside 176 (70-110)
[2024-04-22 07:43] VITALS: BP 168/58; PULSE 87; RESP 15; TEMP 36.9; O2SAT 99
[2024-04-22] MEDS: CARVEDILOL 6.25MG TABLET 6.25 MG PO (08:26)
--- NOTE | 2024-04-22 08:29 | EXP.DC.SUM ---
General Admission date:: 04/19/24 Discharge date: 04/22/24 HPI HPI HPI: Patient is a 63-year-old female with past medical history of diabetes mellitus, hypothyroidism hyperlipidemia hypertension who presents to the hospital due to generalized weakness. Patient mentions she has not been eating well and she has poor oral intake since then. Patient otherwise denied nausea vomiting diarrhea. On further evaluation patient was found to have elevated creatinine and was admitted for acute kidney injury. Hospital Course Hospital Course Hospital Course: Patient is a 63-year-old female with past medical history of diabetes mellitus, hypothyroidism hyperlipidemia hypertension who presents to the hospital due to generalized weakness. Patient mentions she has not been eating well and she has poor oral intake since then. Patient otherwise denied nausea vomiting diarrhea. On further evaluation patient was found to have elevated creatinine and was admitted for acute kidney injury. CK elevated >3200 . Rhabdomyolysis improving. Kidney function improving. Still quite weak. Necessitating placement. Overall doing well. Gradual consistent improvement in kidney function and CK levels. Needing significant assistance, will discharge to [facility] for rehab. Problems addressed as follows: Rhabdomyolysis Acute kidney injury -CK peaked at about 7400, decreasing during admission with hydration. Making good urine. No cola colored urine. Kidney function also improving. On day of discharge kidney function improved with creatinine 1.4, BUN 35. Showing consistent improvement over the past 48 hours. CK remains elevated but improving at 2400 today. Down by 50% from yesterday when her levels were 5300. Suspected causative agent is her statin. Patient reports she began taking Crestor approximately 2 to 3 weeks ago. He when the her med rec shows Lipitor, she states she has not been on it for several months. Strong concern that this episode of rhabdomyolysis is related to her statin therapy. Recommend avoiding statin in the future. Patient still feeling weak, would benefit from therapy. No muscle soreness however. Aching adequate urine. -Needs repeat CK, CMP, magnesium, CBC in 5 days to evaluate for clinical improvement. Generalized weakness: Evaluated by therapy, recommend placement. Patient agreeable to rehab. Graciously accepted by [facility] for further management. Stable to discharge. Diabetes mellitus: A1c 8.6. Treated with sliding scale insulin and fingerstick ACHS during admission. Resume home regimen of metformin and Mounjaro. Inconsistently takes 75/25 insulin as needed when she is out of her Mounjaro. ADA A1c goal based on age and comorbidities would be less than 8 Anemia: Patient's hemoglobin dropped with aggressive fluid resuscitation. Has remained stable around 11 however. No active signs of bleeding. Morbid obesity: Complicates all care Chronic medical conditions Obstructive sleep apnea Hypothyroidism: TSH elevated at 31 at time of admission. Increased levothyroxine to 100 mcg daily, need to repeat TSH in 6 weeks Hypertension: Continue carvedilol 6.25 mg twice daily, blood pressure better controlled. Heart rate in the 80s. Held lisinopril and HCTZ in the setting of ARSH. Reevaluate need for resuming when kidney function normalizes Hyperlipidemia: Discontinued statin in the setting of rhabdomyolysis as this is the most likely culprit at this time Total time spent on discharge 32 minutes in counseling, documentation, chart review, and direct care with patient. Exam Data for Last 24 hours Vital signs and Labs for Last 24 Hours: Temp Pulse Resp BP Pulse Ox O2 Del Method 98.4 F 87 15 168/58 H 99 Room Air 04/22/24 07:43 04/22/24 07:43 04/22/24 07:43 04/22/24 07:43 04/22/24 07:43 04/22/24 07:43 Laboratory Results - last 24 hr 04/21/24 11:37: POC Glucose 196 H 04/21/24 14:23: Sodium 140, Potassium 3.7, Chloride 112 H, Carbon Dioxide 20 L, Anion Gap 11.7, BUN 34 H, Creatinine 1.60 H, Estimated Creat Clear 28, Estimated GFR 32 L, Est GFR ( Amer) 39 L, Glucose 195 H D, Calcium 9.0, Total Creatine Kinase 5371 H* 04/21/24 21:20: POC Glucose 133 H 04/22/24 06:29: POC Glucose 176 H I & O for Last 24 hours: Intake & Output 04/19/24 04/20/24 04/21/24 04/22/24 23:59 23:59 23:59 23:59 Intake Total 761 / 3099 2495 / 7221 2378 / 2498 120 / 120 Output Total 500 / 500 0 / 0 4700 / 4700 Balance 261 / 2599 3358 / 4714 -2322 / -2202 120 / 120 Weight 134.6 kg 134.6 kg 134.9 kg 135.5 kg Constitutional Constitutional: no acute distress, morbidly obese, chronically ill appearing and cooperative *Routine HEENT Exam Head: Present normocephalic Eye: Present EOMI and PERRL ENT: Present mucous membranes moist *Routine Neck Exam Neck: Present supple; Absent lymphadenopathy *Routine Respiratory Exam Respiratory: Present CTA bilaterally; Absent respiratory distress, rhonchi, wheezes or crackles *Routine Cardiovascular Exam Cardiovascular: Present RRR *Routine Abdominal Exam Abdominal: Present soft and normoactive bowel sounds; Absent tenderness *Routine Rectal Exam Patient deferred: visual exam *Routine Exam Patient deferred: external exam *Routine Extremities Exam Extremities: Absent cyanosis, clubbing or edema Comments: General Weakness of remedies, nontender to palpation *Routine Skin Exam Skin: Present intact and warm; Absent rash *Routine Neurological Exam Neurological: Present alert, oriented X3 and moving all extremities; Absent altered mental status Results Data Completed and Pending Labs on day of discharge: Labs from last 24 hours 04/22/24 04/21/24 04/21/24 06:29 21:20 14:23 Sodium 140 Potassium 3.7 Chloride 112 H Carbon Dioxide 20 L Anion Gap 11.7 BUN 34 H Creatinine 1.60 H Estimated Creat Clear 28 Estimated GFR 32 L Est GFR ( Amer) 39 L Glucose 195 H D POC Glucose 176 H 133 H Calcium 9.0 Total Creatine Kinase 5371 H* 04/21/24 11:37 Sodium Potassium Chloride Carbon Dioxide Anion Gap BUN Creatinine Estimated Creat Clear Estimated GFR Est GFR ( Amer) Glucose POC Glucose 196 H Calcium Total Creatine Kinase DS: Diagnosis Discharge Diagnosis (1) Rhabdomyolysis: Status: Acute Code(s): M62.82 - Rhabdomyolysis (2) Acute kidney injury (nontraumatic): Status: Acute Code(s): N17.9 - Acute kidney failure, unspecified (3) Metabolic acidosis: Status: Acute Code(s): E87.20 - Acidosis, unspecified (4) Body mass index (BMI) of 50-59.9 in adult: Status: Acute Code(s): Z68.43 - Body mass index [BMI] 50.0-59.9, adult (5) PARI (obstructive sleep apnea): Status: Acute Code(s): G47.33 - Obstructive sleep apnea (adult) (pediatric) (6) Hypothyroidism: Status: Chronic Code(s): E03.9 - Hypothyroidism, unspecified Qualifiers: Hypothyroidism type: unspecified Qualified Code(s): E03.9 - Hypothyroidism, unspecified (7) Hypertension: Status: Chronic Code(s): I10 - Essential (primary) hypertension Qualifiers: Hypertension type: essential hypertension Qualified Code(s): I10 - Essential (primary) hypertension (8) Diabetes type 2, uncontrolled: Status: Chronic Code(s): E11.65 - Type 2 diabetes mellitus with hyperglycemia Qualifiers: Glycemic state: with hyperglycemia Qualified Code(s): E11.65 - Type 2 diabetes mellitus with hyperglycemia (9) Hyperlipemia: Status: Chronic Code(s): E78.5 - Hyperlipidemia, unspecified Qualifiers: Hyperlipidemia type: unspecified Qualified Code(s): E78.5 - Hyperlipidemia, unspecified (10) Anemia: Status: Acute Code(s): D64.9 - Anemia, unspecified Meds Home Medications and Allergies Home Medications ?Medication ?Instructions ?Recorded ?Confirmed ?Type glipizide 10 mg tablet, extended 10 mg PO BID 04/19/24 04/19/24 History release 24 hr metformin 1,000 mg tablet 1,000 mg PO BID 04/19/24 04/19/24 History tirzepatide 2.5 mg/0.5 mL 2.5 mg SQ WEEKLY 04/19/24 04/19/24 History subcutaneous pen injector (Mounjaro) carvedilol 6.25 mg tablet 6.25 mg PO BID 30 days #60 tabs 04/22/24 Rx levothyroxine 100 mcg tablet 100 mcg PO DAILYDM 30 days #30 tabs 04/22/24 Rx (Synthroid) New Prescriptions to Start Prescriptions: Quinton Guerrero levothyroxine [Synthroid] Quinton Clarke Allergies Allergy/AdvReac Type Severity Reaction Status Date / Time canagliflozin [From Invokana] Allergy Other Verified 04/18/24 23:53 Discharge Plan Disposition Patient Disposition: Xfer SNF Condition: Fair Discharge Order Discharge Orders: Discharge Order (Routine); Ordered 04/22/24 Ordered By: Quinton Clarke Follow up Plan Follow up with: Annie Talbot APRN [Primary Care Provider] - Enter time for follow up Prescriptions/Medication Reconciliation: New carvedilol 6.25 mg Tablet 6.25 mg PO BID 30 Days Qty: 60 0RF levothyroxine [Synthroid] 100 mcg Tablet 100 mcg PO DAILYDM 30 Days Qty: 30 0RF Continued Mounjaro 2.5 mg/0.5 mL pen injector 2.5 mg SQ WEEKLY Rx Instructions: Once a week on Fridays metformin 1,000 mg tablet 1,000 mg PO BID Rx Instructions: TAKE ONE TABLET BY MOUTH 2 TIMES A DAY glipizide 10 mg tablet extended release 24hr 10 mg PO BID Rx Instructions: TAKE ONE TABLET BY MOUTH 2 TIMES A DAY Discontinued levothyroxine 25 mcg tablet 25 mcg PO DAILY rosuvastatin 40 mg tablet 40 mg PO HS lisinopril-hydrochlorothiazide 20-12.5 mg tablet 1 tab PO DAILY Patient Comments: TAKE ONE TABLET BY MOUTH EVERY DAY Problem Reconciliation Problems Reviewed?: Yes Patient Discharge Instructions ACTIVITY: Continue current activity DIET: continue same diet Patient Instructions: DI for Rhabdomyolysis, DI for Acute Kidney Injury Print Language: Japanese Providers Primary Care Provider: Annie Talbot Admit Provider: Roc Oropeza Attending Provider: Roc Oropeza
[2024-04-22 09:18] LABS: Basophils # 0.1 K/mm3 (0-0.2); Basophils % 0.5 % (0.1-2.0); Eosinophils # 0.4 K/mm3 (0.0-0.4); Eosinophils % 5.1 % (0.1-12.0); Hematocrit 31.5 % (37.0-47.0); Hemoglobin 10.8 g/dL (12.2-16.2); Lymphocytes # 1.9 K/mm3 (0.7-4.5); Lymphocytes % 22.2 % (10-50); Mean Corpuscular HGB Conc 34.2 g/dL (31.8-35.4); Mean Corpuscular Hemoglobin 28.7 pg (27.0-31.2); Mean Corpuscular Volume 83.8 fl (81-99); Mean Platelet Volume 7.4 fl (7.4-10.4); Monocytes # 0.5 K/mm3 (0.1-1.0); Monocytes % 6.3 % (1.7-9.3); Neutrophils # 5.6 K/mm3 (1.8-7.8); Neutrophils % 65.9 % (37.0-80.0); Platelet Count 239 K/mm3 (142-424); Red Blood Count 3.76 M/mm3 (4.20-5.40); Red Cell Distribution Width 15.8 % (11.5-17.5); White Blood Count 8.5 K/mm3 (4.8-10.8)
[2024-04-22 09:36] LABS: Anion Gap 13.6 mEq/L (5-15); Blood Urea Nitrogen 35 mg/dl (7-17); Calcium 8.8 mg/dl (8.4-10.2); Carbon Dioxide 20 mmol/L (22.0-30.0); Chloride 109 mmol/L (98-107); Creatinine Clearance Estimated 32 mL/min (50-200); Estimated Glomerular Filt Rate 38 ml/min (>60); GFR (African American) 46 ML/MIN (>60); Glucose 223 mg/dl (74-100); Potassium 3.6 mmoL/L (3.5-5.1); Sodium 139 mmol/L (136-145)
[2024-04-22 09:57] LABS: Creatine Kinase 2404 U/L (30-135)
--- NOTE | 2024-04-22 10:36 | PC.NURSE ---
report given to katie, rn at [facility] called for transport
[2024-04-22] MEDS: humaLOG 100 UNITS/ML 10ML VIAL (SSI) SUBCUT (10:52)
[2024-04-22 10:57] LABS: POC Glucose,Bedside 210 (70-110)
[2024-04-23 05:15] LABS: POC Glucose,Bedside 193 (70-110)
== END 2024-04-22 11:13 | DRG 683 ==
LOC: ER 22:37 → 2ND 23:24
PROVIDERS: Internal Medicine; Internal Medicine Adolescent Medicine; Physician Assistant; Admitting Provider Student in an Organized Health Care Education/Training Program; Emergency Provider Student in an Organized Health Care Education/Training Program; PCP Nurse Practitioner; Visit Provider Student in an Organized Health Care Education/Training Program
DX: N17.9 Acute kidney failure, unspecified (principal); E87.20 Acidosis, unspecified; Z68.43 Body mass index [BMI] 50.0-59.9, adult; M62.82 Rhabdomyolysis; G47.33 Obstructive sleep apnea (adult) (pediatric); E03.9 Hypothyroidism, unspecified; I10 Essential (primary) hypertension; E11.65 Type 2 diabetes mellitus with hyperglycemia; E78.5 Hyperlipidemia, unspecified; D64.9 Anemia, unspecified; E66.01 Morbid (severe) obesity due to excess calories
CPT/HCPCS: 36410; 80048; 80053; 80307; 80320; 80329; 81001; 82550; 82803; 82962; 83036; 83880; 84436; 84443; 84479; 84484; 85025; 87636; 93005; 97110; 97163; 97166; 97530; 99285; J0131; J1644; J1940; J2405; J7030